=== PATIENT | male | born 1950 | race Caucasian/White ===

== ENCOUNTER → 2017-01-31 | Outpatient (CLI) | payer BC ==
[~2017-01-31] MED LIST: AMLO-114 PO; ASCA500 PO; CARV25TA PO; CBCI IV; CLC100 PO; CLON0.3D4 TD; FRRS300 PO; LXP/10 PO; MCRK20 PO; MULT-506 PO; OXYC-57 PO; OXYSR10 PO; SIMV40TA2 PO; SNK PO; XRL10 PO
[2017-01-31 17:47] LABS: HEMATOCRIT 48.5 % (42-52); MEAN CELL VOLUME 92.9 fL (80-100); MEAN CORPUSCULAR HEMOGLOBIN 32.4 pg (25-34); MEAN CORPUSCULAR HGB CONC 34.8 g/dl (32-36); MEAN PLATELET VOLUME 10.7 fL (7.4-10.4); PLATELET COUNT 191 K/uL (130-400); RED BLOOD COUNT 5.22 M/uL (4.7-6.1); WHITE BLOOD COUNT 7.07 K/uL (4.8-10.8)
[2017-01-31 17:49] LABS: URINE APPEARANCE CLEAR (CLEAR); URINE BILIRUBIN NEG (NEG); URINE COLOR YELLOW; URINE NITRITE NEG (NEG); URINE SPECIFIC GRAVITY 1.022 (1.000-1.030); UROBILINOGEN NEG (NEG)
[2017-01-31 17:56] LABS: MANUAL MICROSCOPIC REQUIRED? NO; REVIEW REQ? NO
[2017-01-31 18:01] LABS: BLOOD UREA NITROGEN 20 mg/dl (7-18); BUN/CREATININE RATIO 18.2 (10-20); CALCIUM 9.5 mg/dl (8.5-10.1); CARBON DIOXIDE 22 mmol/L (21-32); CHLORIDE 110 mmol/L (98-107); GLUCOSE 92 mg/dl (70-99); POTASSIUM 3.3 mmol/L (3.5-5.1); SODIUM 143 mmol/L (136-145)
[2017-01-31 18:06] LABS: FERRITIN 37.5 ng/ml (8.0-388.0); PHOSPHORUS 3.1 mg/dl (2.5-4.9); TOTAL IRON BINDING CAPACITY 364 mcg/dl (250-450)
[2017-01-31 18:22] LABS: URINE PROTIEN/CREAT RATIO 0.2 (0-0.2); URINE TOTAL PROTEIN 20.4 mg/dl (0-11.9)
--- NOTE | 2017-02-05 11:38 | CODING QUERY MEDICAL NECESSITY ---
SUPPORTING DIAGNOSIS NEEDED A supporting diagnosis is required for the test/procedure performed on this patient in order for us to be reimbursed by the patient's insurance. Please provide a supporting diagnosis for the following test/procedure listed below next to the test name along with your signature. *If there is no additional diagnosis for this patient that would support the following test/procedure please document that below next to the test/procedure. Test(s)/Procedure(s) that require a supporting diagnosis: * VITAMIN D, 25-HYDROXY DIAGNOSIS: Provider Signature: Date: Thank you Lisa Man [employer] Once completed, please kindly fax back to [phone] For questions please call [phone]
== END | disposition home or self-care (01) ==
LOC: C.LABPBG 14:53
PROVIDERS: ATTEND Internal Medicine Nephrology
DX: I10 Essential (primary) hypertension (principal); R31.29 Other microscopic hematuria; D64.9 Anemia, unspecified; E55.9 Vitamin D deficiency, unspecified

== ENCOUNTER → 2017-08-08 | Outpatient (CLI) | payer BC ==
[2017-08-08 12:02] LABS: HEMATOCRIT 48.8 % (42-52); HEMOGLOBIN 17.5 g/dL (14.0-18.0); MEAN CELL VOLUME 93.3 fL (80-100); MEAN CORPUSCULAR HEMOGLOBIN 33.5 pg (25-34); MEAN CORPUSCULAR HGB CONC 35.9 g/dl (32-36); MEAN PLATELET VOLUME 11.3 fL (7.4-10.4); PLATELET COUNT 163 K/uL (130-400); RED CELL DISTRIBUTION WIDTH CV 12.8 % (11.5-14.5); RED CELL DISTRIBUTION WIDTH SD 43.5 fL (36.4-46.3); WHITE BLOOD COUNT 6.83 K/uL (4.8-10.8)
[2017-08-08 12:37] LABS: ALBUMIN 4.2 gm/dl (3.4-5.0); ALKALINE PHOSPHATASE 87 U/L (45-117); ALT/SGPT 52 U/L (12-78); AST/SGOT 27 U/L (15-37); BLOOD UREA NITROGEN 21 mg/dl (7-18); CALCIUM 9.1 mg/dl (8.5-10.1); CARBON DIOXIDE 27 mmol/L (21-32); CREATININE 1.06 mg/dl (0.60-1.40); GLUCOSE 98 mg/dl (70-99); POTASSIUM 3.6 mmol/L (3.5-5.1); SODIUM 140 mmol/L (136-145)
[2017-08-08 12:38] LABS: CHOLESTEROL 172 mg/dl (0-200); LDL CHOLESTEROL CALCULATED 85 mg/dl; TOTAL PROTEIN 7.2 gm/dl (6.4-8.2)
== END | disposition home or self-care (01) ==
LOC: C.LABPBG 09:30
PROVIDERS: ATTEND Internal Medicine Nephrology
DX: Z12.5 Encounter for screening for malignant neoplasm of prostate (principal); I10 Essential (primary) hypertension; A49.01 Methicillin susceptible Staphylococcus aureus infection, unspecified site; R31.29 Other microscopic hematuria

== ENCOUNTER 2018-03-08 18:14 | Emergency (ER) | payer BC ==
[~2018-03-08] VITALS: Ht 182.9 cm; Wt 120.6 kg
[~2018-03-08 18:14] MED LIST changes: -AMLO-114 PO; +AMLO10TA3 PO
[2018-03-08 18:18] VITALS: TEMP 36.6; Ht 182.9 cm; Wt 120.6 kg
[2018-03-08 19:31] LABS: BASO % 0.6 %; BASO ABS # 0.04 K/uL (0-0.2); EOS % 5.2 %; EOS ABS # 0.36 K/uL (0-0.5); HEMATOCRIT 49.8 % (42-52); HEMOGLOBIN 18.3 g/dL (14.0-18.0); IG# 0.02 K/uL (0.00-0.02); LYMPH % 24.7 %; MEAN CELL VOLUME 92.9 fL (80-100); MEAN CORPUSCULAR HEMOGLOBIN 34.1 pg (25-34); MEAN CORPUSCULAR HGB CONC 36.7 g/dl (32-36); MEAN PLATELET VOLUME 10.7 fL (7.4-10.4); MONO % 9.9 %; MONO ABS # 0.68 K/uL (0.11-0.59); NEUT % 59.3 %; NEUT ABS # 4.09 K/uL (1.4-6.5); PLATELET COUNT 150 K/uL (130-400); RED CELL DISTRIBUTION WIDTH CV 12.9 % (11.5-14.5); RED CELL DISTRIBUTION WIDTH SD 43.8 fL (36.4-46.3); WHITE BLOOD COUNT 6.89 K/uL (4.8-10.8)
[2018-03-08 19:54] LABS: CALCIUM 9.3 mg/dl (8.5-10.1); CREATININE 1.03 mg/dl (0.60-1.40); POTASSIUM 2.8 mmol/L (3.5-5.1)
[2018-03-08] MEDS ORDERED: SODIUM CHLORIDE 0.9% 1000ML 1,000 ML IV STA (21:14)
[2018-03-08] MEDS ORDERED: GADAVIST IV PRN (21:30)
--- NOTE | 2018-03-08 21:36 | DIAGNOSTIC IMAGING REPORT ---
MRI OF THE LUMBAR SPINE WITH AND WITHOUT CONTRAST CLINICAL HISTORY: Low back and right leg pain. Previous lumbar spine surgery. Possible infection. COMPARISON STUDY: Lumbar spine fluoroscopic images April 24, 2014. TECHNIQUE: Utilizing a 1.5 Joie magnet and dedicated coil, multiplanar, multiecho imaging of the lumbar spine was performed before and after uneventful IV administration of 12 mL of Gadavist. FINDINGS: For purposes of numbering on this exam, the L5-S1 disc space is assigned to axial image 23 of 25. There are postoperative findings consistent with L4-L5 and L5-S1 discectomies with interbody spacer placement. Posterior decompression is noted with bilateral pedicle screws at the L4, L5 and S1 levels. The conus terminates at the L1-L2 level. T2 hyperintense bilateral renal lesions are suboptimally assessed on this exam but favor cysts. Paravertebral soft tissues are unremarkable. Multiple Schmorl's nodes are noted. There is no acute lumbar spine fracture. Note is made of moderate increased T2 signal within the L4-L5 disc space. There is mild increased T2 signal within the L5-S1 disc space. However, there is no paravertebral edema. There is no epidural fluid collection. L1-2: The central canal and neural foramen are patent. L2-3: The central canal and neural foramen are patent. L3-4: There is disc space narrowing with disc bulge, ligamentous hypertrophy and facet arthrosis. This results in moderate narrowing of the central canal and lateral recesses. In addition, there is a 1.1 x 0.8 cm right paracentral abnormality located inferior to the disc space which likely reflects a disc extrusion with inferior subligamentous migration. This results in moderate narrowing of the right lateral recess. There is mild narrowing of both neural foramen. L4-5: Disc space narrowing is noted. There is slight anterolisthesis. No residual central canal stenosis is noted. There is mild right neural foraminal narrowing. L5-S1: Central canal and left neural foramen are patent. There is mild narrowing of the right neural foramen. IMPRESSION: 1. Status post L4-L5 and L5-S1 discectomies and L4-S1 posterior decompression with bilateral pedicle screw fusion. 2. Increased T2 signal within the L4-L5 and L5-S1 disc spaces without paravertebral edema or endplate destruction. This finding is likely degenerative. Early discitis could appear similar although is considered much less likely. If persistent symptoms, short-term follow-up MRI is recommended to exclude this possibility. 3. Moderate central canal stenosis at L3-L4. Disc bulge with superimposed right paracentral disc extrusion with inferior subligamentous migration which results in moderate narrowing of the right lateral recess. This could be correlated with a right L4 radiculopathy. Electronically signed by: Tavo Calabrese M.D. 03/08/2018 9:34 PM Dictated Date/Time: 03/08/2018 9:23 PM
[2018-03-08] MEDS ORDERED: POTASSIUM CHLORIDE 10 MEQ TABCR PO STA (22:13)
[2018-03-08] MEDS ORDERED: OXYCODONE IR HOME PACK PO STA (22:43)
[2018-03-08] MEDS ORDERED: OXYC-90 PO (22:46)
--- NOTE | 2018-03-08 22:48 | EMERGENCY ROOM VISIT NOTE ---
History First contact with patient: 18:42 Chief Complaint: BACK PAIN Stated Complaint: BACK AND LEG PAIN History of Present Illness The patient is a 67 year old male who presents to the Emergency Room via private vehicle with complaints of "back and leg pain". The patient notes a history of 2 back surgeries in the past which were performed by Dr. Bear. He notes most of his pathology is in the L-spine. The patient states that about 3- 4 weeks ago he was lifting heavy objects and then shortly thereafter began with low back pain that radiated down his right leg. He states that instead of the being down the posterior aspect of his leg like his previous sciatica diagnosis , he notes that this pain is on the anterior proximal thigh. He rates the pain as an 8/10. He has been taking copious amounts of ibuprofen without relief. He notes he has been told by numerous people that this is not safe for healthy. He states that he is also taking doxycycline chronically for previous infection. He notes that he had x-rays performed on March 06 and notes that they revealed L4-S1 postoperative change with possible pedicle screw loosening/ and/or infection". He notes that he was then referred here by Dr. Bear's office after calling them. No fevers, chills, recent illness. No lower extremity weakness, bowel or bladder incontinence, numbness or tingling the genital region. Review of Systems A complete 10-point Review of Systems was discussed with the patient, with pertinent positives and negatives listed in the History of Present Illness. All remaining Review of Systems questions can be considered negative unless otherwise specified. Past Medical/Surgical History Medical Problems: (1) Acute kidney injury (2) Anemia (3) Coronary Atherosclerosis Of [place] Coronary Vessel (4) Degenerative joint disease (DJD) of hip (5) Depression (6) DJD (degenerative joint disease) (7) Hypertension (8) Hypertension Nos (9) Lumbar stenosis with neurogenic claudication (10) MSSA (methicillin susceptible Staphylococcus aureus) infection (11) Pure Hypercholesterolem Surgical Problems: (1) History of total left hip replacement (2) Hx of hernia repair (3) Hx of lumbosacral spine surgery (4) Hx of shoulder surgery (5) Percutaneous Translum Coron Angioplasty Status Social History Smoking Status: Never Smoker Drug Use: none Marital Status: Housing Status: lives with family Occupation Status: employed Current/Historical Medications Scheduled Amlodipine (Norvasc), 10 MG PO DAILY Ascorbic Acid (Vitamin C), 500 MG PO QAM Carvedilol (Coreg), 25 MG PO BID Clonidine Hcl (Jwuhasat-Fid-6), 1 PATCH TD WK Daptomycin (Cubicin), 725 MG IV DAILY Docusate Sodium (Docusate Sodium), 100 MG PO BID Escitalopram Oxalate (Lexapro), PO DAILY Ferrous Sulfate (Ferrous Sulfate), 325 MG PO BIDM Multivitamin (Multivitamin), 1 TAB PO DAILY Oxycodone HCl (Oxycontin), 10 MG PO Q12 Potassium Chloride (Klor-Con M20), 40 MEQ PO DAILY Rivaroxaban (Xarelto), 10 MG PO DAILY Senna (Senna Lax), 8.6 MG PO QAM Simvastatin (Zocor), 40 MG PO QPM Scheduled PRN Oxycodone Ir (Roxicodone Ir), 1 TAB PO Q4H PRN for Pain Oxycodone/Acetaminophen 5MG/325MG (Percocet 5MG/325MG), 1-2 TABLETS PO Q4H PRN for Pain Physical Exam Vital Signs Date Time Temp Pulse Resp B/P (MAP) Pulse Ox O2 Delivery O2 Flow Rate FiO2 03/08/18 23:13 102 18 126/90 93 18 18:18 36.6 78 18 157/96 95 Room Air Physical Exam VITAL SIGNS - Vital signs and nursing notes were reviewed. Stable. GENERAL -67-year-old male appearing his stated age who is in no acute distress. Communicates well with provider and answers questions appropriately. SKIN - Without rashes. No meningeal or petechial rash. HEAD - NC/AT. EYES - PERRL with EOMI bilaterally. Sclera anicteric. EARS - No deformities of external structures noted on gross examination bilaterally. NOSE - Midline and without cyanosis. No epistaxis or purulent drainage noted. MOUTH/OROPHARYNX - Without perioral cyanosis. NECK - Neck with FROM. Supple to palpation. No lymphadenopathy noted. No nuchal rigidity. LUNGS - Chest wall symmetric without accessory muscle use, intercostals retractions, or central cyanosis. Normal vesicular breath sounds CTA B/L. No wheezes, rales, or rhonchi appreciated. CARDIAC - RRR with S1/S2. No murmur, rubs, or gallops appreciated. ABDOMEN - Abdominal contour normal without pulsations or visible masses. BS normoactive all four quadrants. No tenderness, palpable masses, hepatosplenomegaly, or ascites noted. MUSCULOSKELETAL: The patient is able to sit upright without difficulty. He notes pain with any movement at the L-spine region. He is tender in the L- spine to palpation as well as favoring the right paraspinous musculature. EXTREMITIES - No clubbing or peripheral cyanosis. No pretibial edema present. No deficits in the lower extremities. He is neurovascularly intact. +5/5 strength noted in UE/LE bilaterally. NEUROLOGIC - Cranial nerves II through XII grossly intact. Sensory intact to light touch throughout. PSYCH - A&O, and cooperates fully with examiner. Pt is very pleasant and interacts well with examiner. Medical Decision & Procedures ER Provider Diagnostic Interpretation: [~ rep ct add3]] MRI OF THE LUMBAR SPINE WITH AND WITHOUT CONTRAST CLINICAL HISTORY: Low back and right leg pain. Previous lumbar spine surgery. Possible infection. COMPARISON STUDY: Lumbar spine fluoroscopic images April 24, 2014. TECHNIQUE: Utilizing a 1.5 Joie magnet and dedicated coil, multiplanar, multiecho imaging of the lumbar spine was performed before and after uneventful IV administration of 12 mL of Gadavist. FINDINGS: For purposes of numbering on this exam, the L5-S1 disc space is assigned to axial image 23 of 25. There are postoperative findings consistent with L4-L5 and L5-S1 discectomies with interbody spacer placement. Posterior decompression is noted with bilateral pedicle screws at the L4, L5 and S1 levels. The conus terminates at the L1-L2 level. T2 hyperintense bilateral renal lesions are suboptimally assessed on this exam but favor cysts. Paravertebral soft tissues are unremarkable. Multiple Schmorl's nodes are noted. There is no acute lumbar spine fracture. Note is made of moderate increased T2 signal within the L4-L5 disc space. There is mild increased T2 signal within the L5-S1 disc space. However, there is no paravertebral edema. There is no epidural fluid collection. L1-2: The central canal and neural foramen are patent. L2-3: The central canal and neural foramen are patent. L3-4: There is disc space narrowing with disc bulge, ligamentous hypertrophy and facet arthrosis. This results in moderate narrowing of the central canal and lateral recesses. In addition, there is a 1.1 x 0.8 cm right paracentral abnormality located inferior to the disc space which likely reflects a disc extrusion with inferior subligamentous migration. This results in moderate narrowing of the right lateral recess. There is mild narrowing of both neural foramen. L4-5: Disc space narrowing is noted. There is slight anterolisthesis. No residual central canal stenosis is noted. There is mild right neural foraminal narrowing. L5-S1: Central canal and left neural foramen are patent. There is mild narrowing of the right neural foramen. IMPRESSION: 1. Status post L4-L5 and L5-S1 discectomies and L4-S1 posterior decompression with bilateral pedicle screw fusion. 2. Increased T2 signal within the L4-L5 and L5-S1 disc spaces without paravertebral edema or endplate destruction. This finding is likely degenerative. Early discitis could appear similar although is considered much less likely. If persistent symptoms, short-term follow-up MRI is recommended to exclude this possibility. 3. Moderate central canal stenosis at L3-L4. Disc bulge with superimposed right paracentral disc extrusion with inferior subligamentous migration which results in moderate narrowing of the right lateral recess. This could be correlated with a right L4 radiculopathy. Electronically signed by: Tavo Calabrese M.D. 03/08/2018 9:34 PM Dictated Date/Time: 03/08/2018 9:23 PM Laboratory Results 03/08/18 19:20 Red Blood Count 5.36, Mean Corpuscular Volume 92.9, Mean Corpuscular Hemoglobin 34.1, Mean Corpuscular Hemoglobin Concent 36.7, Mean Platelet Volume 10.7, Neutrophils (%) (Auto) 59.3, Lymphocytes (%) (Auto) 24.7, Monocytes (%) (Auto) 9.9, Eosinophils (%) (Auto) 5.2, Basophils (%) (Auto) 0.6, Neutrophils # (Auto) 4.09, Lymphocytes # (Auto) 1.70, Monocytes # (Auto) 0.68, Eosinophils # (Auto) 0.36, Basophils # (Auto) 0.04 03/08/18 19:20 Test 03/08/18 19:20 White Blood Count 6.89 K/uL (4.8-10.8) Red Blood Count 5.36 M/uL (4.7-6.1) Hemoglobin 18.3 g/dL (14.0-18.0) Hematocrit 49.8 % (42-52) Mean Corpuscular Volume 92.9 fL (80-100) Mean Corpuscular Hemoglobin 34.1 pg (25-34) Mean Corpuscular Hemoglobin Concent 36.7 g/dl (32-36) Platelet Count 150 K/uL (130-400) Mean Platelet Volume 10.7 fL (7.4-10.4) Neutrophils (%) (Auto) 59.3 % Lymphocytes (%) (Auto) 24.7 % Monocytes (%) (Auto) 9.9 % Eosinophils (%) (Auto) 5.2 % Basophils (%) (Auto) 0.6 % Neutrophils # (Auto) 4.09 K/uL (1.4-6.5) Lymphocytes # (Auto) 1.70 K/uL (1.2-3.4) Monocytes # (Auto) 0.68 K/uL (0.11-0.59) Eosinophils # (Auto) 0.36 K/uL (0-0.5) Basophils # (Auto) 0.04 K/uL (0-0.2) RDW Standard Deviation 43.8 fL (36.4-46.3) RDW Coefficient of Variation 12.9 % (11.5-14.5) Immature Granulocyte % (Auto) 0.3 % Immature Granulocyte # (Auto) 0.02 K/uL (0.00-0.02) Anion Gap 10.0 mmol/L (3-11) Est Creatinine Clear Calc Drug Dose 95.9 ml/min Estimated GFR () 87.9 Estimated GFR (Non- 75.9 BUN/Creatinine Ratio 30.1 (10-20) Calcium Level 9.3 mg/dl (8.5-10.1) Medications Administered Medications (Trade) Dose Ordered Sig/Lizz Route Start Time Stop Time Status Last Admin Dose Admin Sodium Chloride 1,000 ml @ 999 mls/hr Q1H1M STAT IV 03/08/18 21:14 03/08/18 22:14 DC 03/08/18 21:14 999 MLS/HR Potassium Chloride (Klor-Con M10) 40 meq NOW STAT PO 03/08/18 22:13 03/08/18 22:14 DC 03/08/18 22:13 40 MEQ Medical Decision Patient was seen and evaluated as above in room D7. Review was performed of nursing notes and vital signs. After obtaining a thorough history and physical examination the above work up was performed. He has an extensive past medical history, as well as well-documented lumbar pathology. He had 2 surgeries years ago of the L-spine. He notes he was referred here for evaluation. I did review his x-rays. This in conjunction with his presentation and past medical history prompted an MRI of the L-spine which I believe is warranted. I was able to also obtain baseline labs. No concerning leukocytosis. No significant anemia. He is hypokalemic. He notes that he takes chronic medications for this. I did provide him 40 mEq potassium chloride p.o. I did obtain an EKG given the potassium lower than 3. There is no flattened P waves, widened QRS or PTs. At this time in the absence of any EKG changes do not suspect he requires inpatient management. No chest pain or shortness of breath. I discussed inpatient versus outpatient management. I did discuss the case with Giancarlo Sarmiento PA-C who was on-call for Dr. Bear for spine. The skull took place around 10 PM. He recommended having the patient call his office Sunday morning to be seen in the next 1-2 weeks. He notes that he does not believe there is any infection and no discitis. It is important that the patient is neurovascularly intact. He will be given a short prescription of oxycodone for pain. Thorough discussion of benefit versus risk discussed with the patient. This included but was not limited to risk of addiction. No red flags in the [place] drug monitoring system. The patient was educated upon management, educated upon todays findings/results, educated upon symptoms in which to return , had questions answered prior to discharge, and was discharged home in good condition. I will note that the patient's radiculopathy correlates very well with his MRI. The L4 right-sided radiculopathy fits with the patient's noted radiation of pain from the right low back region around to the right anterior thigh. There is no bowel or bladder incontinence, numbness or tingling the genital region or leg weakness. Case was discussed with the attending physician. In the evaluation and treatment of this patient the following differential diagnoses were entertained: Fracture, dislocation, subluxation, herniation, cauda equina syndrome, infection, among others. Impression Primary Impression: Low back pain Additional Impression: Hypokalemia Departure Information Dispostion Home / Self-Care Condition GOOD Prescriptions Oxycodone Ir (Roxicodone Ir) 5 Mg Tab 1 TAB PO Q4H Y for Pain, #18 TAB For Initial Treatment Prov: Lul Arceo PA-C 03/08/18 Referrals Shorty Cortes M.D. (PCP) Gregorio Bear D.O. Patient Instructions My [facility] Additional Instructions You have been treated in the Emergency Department for Back Pain. You have been prescribed Oxy IR to be used for pain control. This is a narcotic medication. You cannot drive or consume alcohol while on this medicine. This medicine should only be used for pain that cannot be controlled with over-the- counter pain medicines. For pain control, you can use the following [id number]-[id number] medicines (if >12 yo): - Regular strength (325mg/tab) Tylenol (acetaminophen) 2 tabs every 4-6 hours as needed. Do not exceed 12 tablets in a 24 hour period. Avoid taking more than 3 grams (3000 mg) of Tylenol per day. This includes any other sources of acetaminophen you may take on a regular basis. - Regular strength (200 mg/tab) Advil (ibuprofen) 1-2 tabs every 4-6 hours as needed. Do not exceed a dose of 3200 mg per day. MAX would be 400mg every 4 hours, OR 600mg every 6 hours OR 800mg every 8 hours. This is the maximum. If this is an acute injury, ice can be applied to the area of pain for the first 3 days to help decrease pain and inflammation. After the first 3 days, a heating pad can be used over the area for continued soothing relief. You should schedule a follow-up appointment in 2-3 days with your Primary Care Provider for further evaluation and treatment of your back pain and low potassium Please call Dr. Bear's office first thing Sunday to request follow-up indicating that you were seen here in the emergency department and we spoke with Giancarlo. Return to the Emergency Department if your current symptoms worsen despite treatment course outlined above, or if you develop any of the following symptoms : intractable pain despite aforementioned treatment course, loss of control of your bowel or bladder, numbness or tingling in your groin, or development of a fever. Problem Qualifiers
[2018-03-08 23:13] VITALS: BP 126/90; PULSE 102; O2SAT 93
== END 2018-03-08 23:15 | disposition home or self-care (01) ==
LOC: C.EDB 18:14 → C.EDD 23:15
DX: M54.5 Low back pain (principal); E87.6 Hypokalemia; I10 Essential (primary) hypertension; F32.9 Major depressive disorder, single episode, unspecified; D64.9 Anemia, unspecified; Z79.01 Long term (current) use of anticoagulants; Z87.39 Personal history of other diseases of the musculoskeletal system and connective tissue; Z96.642 Presence of left artificial hip joint; Z98.890 Other specified postprocedural states

== ENCOUNTER 2020-01-14 16:17 | Inpatient (IN) ==
--- NOTE | 2020-01-09 14:07 | Anesthesiology Consultation ---
Date of Service January 09, 2020 Assessment & Plan (1) Encounter for pre-operative examination: Chart Review Chart Review: Acceptable Risk for Surgery (pending 01/07 Covid testing) and Patient NOT seen in Pre Admission Testing Per nursing assessment 01/09/20, pt resides in [place]. No recent travel- uses mask in public. Had Covid test 01/07- results pending Seen by nephro 06/03/19= CKD stable. Hematuria- UA negative for blood at visit. HTN - well controlled. Has mild diuretic induced hypokalemia. Advised to increase K in diet- continue with K supplement. Anemia- acceptable. PTH WNL. F/u six months I&D seroma 05/01/18= Done under [facility] with Grade 2 view with Glidescope #3 and ETT 8.0 History Surgery Operation Date: 01/13/20 12:35 Proposed Procedures p L2-L3 Decompression and Fusion, L3-L4 Hardware Removal, Spinal Cord Monitoring - Gregorio Bear, DO Height/Weight Height: 6 ft 1 in Weight: 124.738 kg Allergies Allergy/AdvReac Type Severity Reaction Status Date / Time ciprofloxacin AdvReac Mild headache Verified 01/09/20 11:11 Cipro AdvReac Unknown headache Verified 12/29/15 07:05 Medications Home Medications Medication Instructions Recorded Confirmed Last Taken amlodipine [Norvasc] 10 mg PO QAM 03/29/18 01/09/20 04/06/18 carvedilol [Coreg] 25 mg PO BID 03/29/18 01/09/20 04/06/18 doxycycline hyclate 100 mg PO BID 03/29/18 01/09/20 04/06/18 hydrochlorothiazide 25 mg PO QAM 03/29/18 01/09/20 04/05/18 ibuprofen 800 - 1,000 mg PO QID PRN 03/29/18 01/09/20 04/06/18 losartan 50 mg PO QPM 03/29/18 01/09/20 04/05/18 21:00 potassium chloride 10 meq PO BID 03/29/18 01/09/20 04/06/18 simvastatin [Zocor] 40 mg PO HS 03/29/18 01/09/20 04/05/18 21:00 gabapentin 300 mg capsule 300 mg PO TID cap 04/15/19 01/09/20 Unknown docusate sodium [Colace] 100 mg PO BID 01/09/20 01/09/20 Unknown multivitamin 1 tab PO QAM 01/09/20 01/09/20 Unknown oxycodone [OxyContin] 10 mg PO Q6H PRN 01/09/20 01/09/20 Unknown Past Medical History Medical History (Updated 01/09/20 @ 14:07 by Anuja Harding PA-C) Anxiety CAD (coronary artery disease) s/p 1 stent in 2004 Chronic kidney disease, stage II (mild) Follows with nephro- stable. Degenerative disc disease Hypertension Numbness and tingling BELOW RIGHT KNEE Osteoarthritis Spinal stenosis at L4-L5 level Past Surgical History Surgical History Fusion of spine LUMBAR X 3 History of anesthesia reaction WOKE UP DISORIENTED,"ACTED CRAZY" History of cardiac cath - [place]. S/S "MIMICKING HEART ATTACK" X3 - WAS FLOWN TO [place] HAD 3 CATHS DONE. SENT TO [facility]OLD WAS HAVING PANIC ATTACKS. PUT ON XANAX TOTAL [address] [place] History of colonoscopy History of endoscopic sinus surgery X2 History of heart artery stent X 1-2005. [facility]. In the [place] History of herniorrhaphy LEFT AND RIGHT Inguinal hernias History of tonsillectomy History of total hip arthroplasty LEFTX2, RIGHT X3 History of total shoulder replacement LEFT Social History Smoking Status: Never smoker Do You Dip or Chew Tobacco: No Hx Alcohol Use: Yes Alcohol type: beer and hard liquor alcohol intake frequency: 3 or more drinks per day Hx Substance Use: No substance use type: painkillers and prescription drug Substance Use Type Other:: Takes as prescribed Testing Laboratory Results Laboratory Tests 01/08/20 01/08/20 01/08/20 15:56 15:56 15:56 WBC 8.20 Hgb 17.8 Hct 50.3 Plt Count 165 PT 10.7 INR 1.0 Sodium 143 Potassium 3.2 L Chloride 111 H Carbon Dioxide 22 BUN 25 H Creatinine 1.26 Glucose 117 H Urine culture 01/08/20= Negative Electrocardiogram Date: 01/08/20 SR with 1st degree AVB at 75 bpm. LAD. Chest X-Ray Date: 01/08/20 Findings: + NAD Echocardiogram Date: 04/09/18 EF: 65-70% LV Function: normal RWMA: + none Other Findings: + LVH (mild/concentric) Valvular Disease: + no significant valvular disease Grade I diastolic dysfunction. RV moderately dilated. Mild to moderate RV hypertrophy. RV systolic function mild to moderately reduced.
--- NOTE | 2020-01-14 15:41 | History & Physical Report ---
Date of Service January 14, 2020 Assessment & Plan (1) Neurogenic claudication due to lumbar spinal stenosis: At this time the patient is declining significantly with the neuro deficits and severe pain. Subsequently recommending urgent decompression and fusion. He has an MRI performed a week ago on 618 that demonstrates significant to space collapse and retrolisthesis L2-L3 with a massive disc herniation and caudal migration. This is creating severe central and right-sided neuroforaminal stenosis. At this time he will be admitted to have evaluated by anesthesiology and cardiology and perform surgery as soon as he is cleared. He will require a lumbar decompression and fusion L2-3 with removal of instrumentation L3-4. Present on Admission?: Yes History of Present Illness Chief Complaint: Severe back and bilateral leg pain right greater than left. Primary Care Provider: Shorty Cortes This is a 69-year-old male known to us that presents with marked decline in status over the past several weeks. He did note significant right lower extremity pain with some leg pain in the left. It markedly limits his ability to stand and ambulate. He is undergone various medications including trial of oral steroids without marked improvement. Allergies Allergy/AdvReac Type Severity Reaction Status Date / Time ciprofloxacin AdvReac Mild headache Verified 01/09/20 11:11 Cipro AdvReac Unknown headache Verified 12/29/15 07:05 Home Medications Home Medications Medication Instructions Recorded Confirmed Type amlodipine [Norvasc] 10 mg PO QAM 03/29/18 01/09/20 History carvedilol [Coreg] 25 mg PO BID 03/29/18 01/09/20 History doxycycline hyclate 100 mg PO BID 03/29/18 01/09/20 History hydrochlorothiazide 25 mg PO QAM 03/29/18 01/09/20 History ibuprofen 800 - 1,000 mg PO QID PRN 03/29/18 01/09/20 History losartan 50 mg PO QPM 03/29/18 01/09/20 History potassium chloride 10 meq PO BID 03/29/18 01/09/20 History simvastatin [Zocor] 40 mg PO HS 03/29/18 01/09/20 History gabapentin 300 mg capsule 300 mg PO TID cap 04/15/19 01/09/20 History docusate sodium [Colace] 100 mg PO BID 01/09/20 01/09/20 History multivitamin 1 tab PO QAM 01/09/20 01/09/20 History oxycodone [OxyContin] 10 mg PO Q6H PRN 01/09/20 01/09/20 History Past Med/Surg History Medical History (Updated 01/14/20 @ 15:40 by Gregorio Bear, DO) Anxiety CAD (coronary artery disease) s/p 1 stent in 2004 Chronic kidney disease, stage II (mild) Follows with nephro- stable. Degenerative disc disease Hypertension Numbness and tingling BELOW RIGHT KNEE Osteoarthritis Spinal stenosis at L4-L5 level Surgical History Fusion of spine LUMBAR X 3 History of anesthesia reaction WOKE UP DISORIENTED,"ACTED CRAZY" History of cardiac cath - [facility]. S/S "MIMICKING HEART ATTACK" X3 - WAS FLOWN TO [facility] D 3 CATHS DONE. SENT TO [place] TOLD WAS HAVING PANIC ATTACKS. PUT ON XANAX TOTAL [address] [place] History of colonoscopy History of endoscopic sinus surgery X2 History of heart artery stent X 1-2004. [facility]. In the [place] History of herniorrhaphy LEFT AND RIGHT Inguinal hernias History of tonsillectomy History of total hip arthroplasty LEFTX2, RIGHT X3 History of total shoulder replacement LEFT Social History Preferred Language: Libyan Communication Ability: Effective Visual Impairment: Limited Stock Counter Required: No Beliefs That Will Affect Care: None marital status: Current Living Situation: Spouse and Family Current Living Situation Comment: [place]/2 KIDS Other Information That Helps Us Care for You: No Feels Safe at Home: Yes Safety Concerns: Feels Safe At This Time Smoking Status: Never smoker Do You Dip or Chew Tobacco: No ; Second Hand Exposure: No ; Hx Alcohol Use: Yes Alcohol type: beer and hard liquor Hx Substance Use: No Physical Exam Physical Exam: On exam he is in obvious distress. Ambulates with antalgic gait. Demonstrates quads deficits to the testing the right lower extremity. He carmen forward with standing. Code Status & VTE Plan VTE Prophylaxis Plan VTE Prophylaxis will be ordered: Yes
[~2020-01-14 16:17] MED LIST changes: +ACETAMINOPHEN 500 MG TAB PO SCH; -AMLO10TA3 PO; -ASCA500 PO; -CARV25TA PO; -CBCI IV; +CEFAZOLIN 3000MG 72.5 ML IV SCH; -CLC100 PO; -CLON0.3D4 TD; +CeleBREX 200 MG CAP PO SCH; -FRRS300 PO; +GABAPENTIN 300 MG CAP PO SCH; +HYDROmorphone INJ 0.5 MG/0.5 ML SYR IV PRN; +HYDROmorphone INJ 1 MG/ML SYRINGE IV PRN; +LORazepam 1 MG TAB PO PRN; +LORazepam 1 MG/2 ML VIAL IV PRN; +LR 15ML/HR IV SCH; -LXP/10 PO; -MCRK20 PO; +METOCLOPRAMIDE HCL INJ 5 MG/ML 2 ML VIAL IV PRN; -MULT-506 PO; +ONDANSETRON 4 MG OD TAB PO PRN; +ONDANSETRON INJ 2 MG/ML 2 ML VIAL IV PRN; -OXYC-57 PO; -OXYSR10 PO; +PROMETHAZINE HCL 12.5 MG in SODIUM CHLORIDE 0.9% 50 ML IV PRN; -SIMV40TA2 PO; -SNK PO; +TRAMADOL HCL 50 MG TABLET PO PRN; -XRL10 PO
[2020-01-14 17:26] LABS: Basophils # (auto) 0.04 K/uL (0-0.2); Basophils % (auto) 0.5 %; Eosinophils # (auto) 0.48 K/uL (0-0.5); Eosinophils % (auto) 5.8 %; Hemoglobin 17.8 g/dL (14.0-18.0); Immature Granulocytes # (auto) 0.03 K/uL (0.00-0.02); Immature Granulocytes % (auto) 0.4 %; Lymphocytes # (auto) 2.01 K/uL (1.2-3.4); Lymphocytes % (auto) 24.4 %; Mean Corpuscular Hgb Conc 35.6 g/dL (32-36); Mean Corpuscular Volume 95.6 fL (80-100); Mean Platelet Volume 10.6 fL (7.4-10.4); Monocytes % (auto) 9.7 %; Neutrophils # (auto) 4.87 K/uL (1.4-6.5); Neutrophils % (auto) 59.2 %; Platelet Count 147 K/uL (130-400); RDW Coefficient of Variation 13.2 % (11.5-14.5); RDW Standard Deviation 45.8 fL (36.4-46.3); Red Blood Count 5.23 M/uL (4.7-6.1); White Blood Count 8.23 K/uL (4.8-10.8)
[2020-01-14 17:45] LABS: Albumin Level 3.9 gm/dl (3.4-5.0); BUN Creatinine Ratio 20.7 (10-20); Calcium 9.3 mg/dl (8.5-10.1); Creatinine Clr Calc Pharmacy 90.2 ml/min; Est GFR (African American) 80.1; Est GFR (Non-African American) 69.1; Potassium 3.1 mmol/L (3.5-5.1)
[2020-01-14 17:48] LABS: Albumin Globulin Ratio 1.1 (0.9-2); Bilirubin,Total 0.7 mg/dl (0.2-1); Globulin 3.7 gm/dl (2.5-4.0); Total Protein 7.6 gm/dl (6.4-8.2)
--- NOTE | 2020-01-14 17:50 | Consultation ---
Date of Consultation January 14, 2020 Assessment & Plan (1) Neurogenic claudication due to lumbar spinal stenosis: Pt for planned L2-L3 decompression and fusion and L3-L4 hardware removal by Dr Bear for back pain with radiculopathy. 01/08/2020 pre-op labs reviewed. Negative Covid-19 testing, CXR: no acute disease, EKG: sinus rhythm with 1st degree AV block and left axis deviation. Pt prior EKG from 2018 with 1st degree AV block. -pain management per ortho -DVT prophylaxis per ortho, SCDs -Pre-op Hgb: 17.8 -Will make NPO tonight in case of procedure tomorrow (2) Hypertension: -Continue carvedilol, losartan -Will hold HCTZ in case of procedure tomorrow (3) Hypokalemia: K: 3.1. -Replace with oral KCl tonight -Continue home potassium supplement (4) HLD (hyperlipidemia): -continue statin (5) CAD (coronary artery disease): stent was placed in 2000 for CP at [facility], Reports repeat follow up at [facility] and was diagnosed with anxiety attack No SOB, CP or exertional SOB or CP -Continue carvedilol, statin (6) Chronic kidney disease, stage II (mild): Cr: 1.1. Baseline Cr: 1.1 -Avoid nephrotoxic agents when possible -Monitor renal functions (7) Alcohol use: Consumes 4 drinks a day. 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 See addendum Thank you for this consultation. We will follow the patient with you during their hospital stay. You can reach a member of the [facility] Hospitalist Team 12/02 via pager @ [phone]. Supervising Physician Co-Signing Physician Notes Attending addendum Patient seen and examined, care coordinated with Anamika Andersen PA-C This is a 69-year-old male with history of coronary artery disease hypertension, admitted for elective lumbar decompression surgery Denies of any chest pain no shortness of breath no cough no dyspnea on exertion Renal function at baseline Preop chest x-ray, EKG shows no acute change Patient is low risk for any acute cardio pulmonary complication for elective back surgery Do not believe patient needs any other additional studies preop Physical exam: As per general Nathaly DENNIS Please refer to further documentation by Anamika Andersen PA-C for discussion of other chronic issues Ana Rosa Grimes MD History of Present Illness Requesting Physician: Dr Bear Reason for Consultation: Pre-op evaluation Attending Physician: Gregorio Bear DO History of Present Illness Pt is 69 y/o M with PMH HTN, HLD, h/o stent in 2000 for suspected DC that pt states was later diagnosed as panic attack, CKD II, h/o staph infection after hip replacement on chronic suppressive therapy seen in medical consultation for planned L2-L3 decompression and fusion and L3-L4 hardware removal by Dr Bear for back pain with radiculopathy greatest to RLE. Dr Bear note reports that pt had reported MRI spine on 01/08/2020 that demonstrates significant to space collapse and retrolisthesis L2-L3 with a massive disc herniation and caudal migration, creating severe central and right- sided neuroforaminal stenosis (This is unavailable to review at this time). Had pre-op labs on 01/08/2020 that were WNL except K: 3.2, had negative Covid-19 testing, CXR: no acute disease, EKG: sinus rhythm with 1st degree AV block and left axis deviation. Pt prior EKG from 2018 with 1st degree AV block. Pt denies any SOB, CP, exertional SOB or CP. He states his stent was placed in 2000 for CP and suspected DC and he reported that he had 65% blockage and had repeat cath at that time showing no stent occlusion and had follow up at [facility] and was diagnosed with anxiety attack. Pt denies any recurrent CP or SOB. No longer on medication for anxiety. Pt consumes 4 drinks a day. Denies h/o ETOH withdrawal, seizures or DT's. Denies fever/chills, diaphoresis, N/V/D/C, LONG, dizziness, syncope, vision changes, neck pain, orthopnea, palpitations, cough, sore throat, choking, otalgia, rhinorrhea, abdominal pain, weakness, e xtremity weakness, extremity edema, rashes, urinary symptoms. Allergies Allergy/AdvReac Type Severity Reaction Status Date / Time ciprofloxacin AdvReac Mild headache Verified 01/09/20 11:11 Cipro AdvReac Unknown headache Verified 12/29/15 07:05 Home Medications Home Medications Medication Instructions Recorded Confirmed Type amlodipine [Norvasc] 10 mg PO QAM 03/29/18 01/14/20 History carvedilol [Coreg] 25 mg PO BID 03/29/18 01/14/20 History doxycycline hyclate 100 mg PO BID 03/29/18 01/14/20 History hydrochlorothiazide 25 mg PO QAM 03/29/18 01/14/20 History ibuprofen 800 - 1,000 mg PO QID PRN 03/29/18 01/09/20 History losartan 50 mg PO QPM 03/29/18 01/14/20 History potassium chloride 10 meq PO BID 03/29/18 01/14/20 History simvastatin [Zocor] 40 mg PO HS 03/29/18 01/14/20 History gabapentin 300 mg capsule 300 mg PO TID cap 04/15/19 01/14/20 History docusate sodium [Colace] 100 mg PO BID 01/09/20 01/09/20 History multivitamin 1 tab PO QAM 01/09/20 01/09/20 History oxycodone [OxyContin] 10 mg PO Q6H PRN 01/09/20 01/14/20 History Patient History Medical History Alcohol use Anxiety CAD (coronary artery disease) L[facility] PCI 2000 Chronic kidney disease, stage II (mild) Follows with nephro- stable. Degenerative disc disease HLD (hyperlipidemia) Hypertension Numbness and tingling BELOW RIGHT KNEE Osteoarthritis Spinal stenosis at L4-L5 level Surgical History (Updated 01/15/20 @ 11:40 by Guanakito Basilio MD) Fusion of spine LUMBAR X 3 History of anesthesia reaction WOKE UP DISORIENTED,"ACTED CRAZY" History of cardiac cath 2000- [place]. S/S "MIMICKING HEART ATTACK" X3 - WAS FLOWN TO [place] HAD 3 CATHS DONE. SENT TO [place] TOLD WAS HAVING PANIC ATTACKS. PUT ON XANAX TOTAL [address] [place] History of colonoscopy History of endoscopic sinus surgery X2 History of heart artery stent TAXUS 3 x 12 mm LAD on 04/12/2001 History of herniorrhaphy LEFT AND RIGHT Inguinal hernias History of tonsillectomy History of total hip arthroplasty LEFTX2, RIGHT X3 History of total shoulder replacement LEFT Social History Preferred Language: Chinese Communication Ability: Effective Visual Impairment: Limited Rn Clinician Required: No Beliefs That Will Affect Care: None marital status: Current Living Situation: Spouse and Family Current Living Situation Comment: [place]OUSE/2 KIDS Other Information That Helps Us Care for You: No Feels Safe at Home: Yes Safety Concerns: Feels Safe At This Time Smoking Status: Never smoker Do You Dip or Chew Tobacco: No ; Second Hand Exposure: No ; Hx Alcohol Use: Yes (4 drinks daily) Alcohol type: beer and hard liquor Hx Substance Use: No Review of Systems Review of Systems: All systems reviewed & are unremarkable except as noted in HPI & below Physical Exam Physical Exam: General: no distress, obese Head: normocephalic, atraumatic Eyes: conjunctiva non-injected, anicteric ENT: normal inspection external ears, nose, mucous membranes moist Neck: supple, trachea midline, non-tender Lungs: clear, no respiratory distress, no wheezing/rhonchi/rales CV: RRR, no murmur, no pretibial edema Back: +healed surgical scars, +tenderness to palpation lumbar region, no discoloration Abd: normal BS, soft, protuberant, non-tender Ext: no cyanosis, no calf tenderness, pedal pushes and pulls intact bilaterally, distal pulses intact Neuro: A&O x 3, no focal deficits noted, normal affect Skin: warm, dry Results & Data ([facility]) Laboratory Results Short CBC 01/14/20 Range/Units 17:12 WBC 8.23 (4.8-10.8) K/uL Hgb 17.8 (14.0-18.0) g/dL Hct 50.0 (42-52) % Plt Count 147 (130-400) K/uL BMP 01/14/20 17:12 Sodium 139 Potassium 3.1 L Chloride 111 H Carbon Dioxide 25 BUN 23 H Creatinine 1.10 Glucose 99 Calcium 9.3 Liver Function 01/14/20 Range/Units 17:12 Total Bilirubin 0.7 (0.2-1) mg/dl AST 57 H (15-37) U/L ALT 94 H (12-78) U/L Alkaline Phosphatase 103 (45-117) U/L Albumin 3.9 (3.4-5.0) gm/dl (1) Hypertension Hypertension type: essential hypertension Qualified Code(s): I10 - Essential (primary) hypertension
[2020-01-14] MEDS ORDERED: POTASSIUM CHLORIDE 20 MEQ TABCR PO STA (18:26)
[2020-01-14] MEDS ORDERED: LORazepam 1 MG TAB PO PRN (18:42)
[2020-01-14] MEDS: DOCUSATE SODIUM 100 MG CAP PO SCH (20:08)
[2020-01-14] MEDS: OXYCODONE HCL IR 5 MG TAB (IMMEDIATE RELEASE) PO PRN (20:08)
[2020-01-14] MEDS: DOXYCYCLINE HYCLATE 100 MG CAP PO SCH (20:09)
[2020-01-14] MEDS: carvediloL 25 MG TAB PO SCH (20:09)
[2020-01-14] MEDS: SIMVASTATIN 40 MG TAB PO SCH (20:09)
[2020-01-14] MEDS: LOSARTAN POTASSIUM 50 MG TAB PO SCH (20:09)
[2020-01-14] MEDS: GABAPENTIN 300 MG CAP PO SCH (20:09)
[2020-01-14] MEDS: POTASSIUM CHLORIDE 10 MEQ TABCR PO SCH (20:09)
[2020-01-14] MEDS ORDERED: DOCUSATE SODIUM 100 MG CAP PO SCH (21:00)
[2020-01-15] MEDS: OXYCODONE HCL IR 5 MG TAB (IMMEDIATE RELEASE) PO PRN ×3 (06:41→22:28)
[2020-01-15] MEDS ORDERED: POTASSIUM CHLORIDE 20 MEQ TABCR PO ONE (07:30)
[2020-01-15] MEDS: DOCUSATE SODIUM 100 MG CAP PO SCH ×2 (08:31→20:34)
[2020-01-15] MEDS: GABAPENTIN 300 MG CAP PO SCH ×3 (08:32→20:34)
[2020-01-15] MEDS: POTASSIUM CHLORIDE 10 MEQ TABCR PO SCH ×2 (08:32→20:34)
[2020-01-15] MEDS: carvediloL 25 MG TAB PO SCH ×2 (08:32→20:34)
[2020-01-15] MEDS: MULTIVITAMIN TAB PO SCH (08:32)
[2020-01-15] MEDS: DOXYCYCLINE HYCLATE 100 MG CAP PO SCH ×2 (08:33→20:34)
[2020-01-15] MEDS: AMLODIPINE BESYLATE 5 MG TAB PO SCH (08:33)
--- NOTE | 2020-01-15 08:47 | XRay Report ---
XR chest 1V portable HISTORY: pre op clearance COMPARISON: Chest 01/08/2020. FINDINGS: There are low lung volumes. No new focal lung consolidations to suggest pneumonia. No evide nce for pulmonary edema. Cardiac silhouette is mildly enlarged. No pleural effusions. No pneumothorax . Partially visualized left shoulder prosthesis. IMPRESSION: Mild enlargement of the cardiac silhouette which could be accentuated by the low lung volumes. Otherw ise, no acute process within the chest. ACT 112: Negative or not required by law. Electronically signed by: Adonay Eduardo M.D. 01/15/2020 7:55 AM
--- NOTE | 2020-01-15 11:43 | Cardiology Consultation ---
Date of Consultation January 15, 2020 Assessment & Plan (1) CAD (coronary artery disease): (2) HLD (hyperlipidemia): (3) Hypertension: (4) Encounter for pre-operative examination: ASSESSMENT/PLAN: 1. CAD s/p LAD PCI (2000): No angina or heart failure symptoms. Recommend that he resume aspirin 81 mg daily indefinitely. If able during this hospitalization, would recommend restarting this medication unless prohibited by Dr. Bear for his upcoming spinal surgery. Rationale for this discussed with Mr. Weeks. Continue beta-tammi throughout the perioperative period, including the morning of surgery. Continue statin therapy. 2. Hypertension: Blood pressure has been normotensive to mildly hypertensive. Continue current regimen for now. 3. Dyslipidemia: Would consider high-intensity statin therapy in place of simvastatin but this can be done as an outpatient. 4. Preoperative cardiac assessment: He is able to achieve greater than 4 METS without anginal symptoms. Low cardiac risk for upcoming surgery which has been deemed urgent by Orthopedics. Recommend beta-tammi at home dose as noted above. No further cardiac evaluation necessary at this time. 5. Disposition: Cardiology will sign off at this time. Please call with any other questions or concerns. Hypokalemia is being addressed by hospitalist service. Thank you for allowing me to participate in the care of your patient. Please call for any other questions or concerns. Sincerely, Tomas Basilio M.D. History of Present Illness Reason for Consultation: CAD; Preoperative cardiac assessment Requesting Physician: Dr. Bear Attending Physician: Gregorio Bear, History of Present Illness Mr. Weeks is a pleasant 69-year-old gentleman with a history significant for CAD s/p LAD PCI 2000, hypertension, dyslipidemia, CKD, and lumbar spinal stenosis. He was admitted to [facility] on 01/14/[address] Bear with plans of urgent decompression and fusion of L2 and L3 with removal of instrumentation of L3 and L4. He has been experiencing back pain with radiculopathy. His cardiac history began in 2000. He developed chest discomfort and shortness of breath and was transferred from [facility] to [place] in March of 2001. He underwent cardiac catheterization on 04/11/2001 and was found to have a 65% lad lesion. On 04/12/2001, he underwent PCI with a Taxus 3 x 12 mm FOREIGN stent. Exactly 1 week later, he had the same symptoms and was once again life flighted to [facility]. He underwent another cardiac catheterization demonstrating patent stent and no other significant CAD. He was discharged home. Exactly 1 week later he had the same symptoms and once again was recommended to have a cardiac catheterization but he declined. He then followed up at [facility] in [place] and was told by email designer there that he was suffering from panic attacks. He was given Lexapro and Xanax and his symptoms resolved. He has not had any further chest pain or shortness of breath. Despite his lumbar spinal issues, he is able to ambulate up Flights of stairs and also able to grocery shop up and down the aisles without chest pain or shortness of breath. He denies syncope, near-syncope, palpitations, edema, or bleeding such as melena, hematochezia, or hematuria. A few years ago, aspirin was discontinued while he was having issues with recurrent staph infections from hip surgeries. He states that he had kidney issues at that time as well. While not taking aspirin, he has been taking significant amounts of ibuprofen, higher than typical recommended dosing due to his pain. He has had echocardiogram studies done throughout the years with his most recent being last year with his PCP. Reportedly, his LV systolic function was normal. Review of systems: As above. Review of systems otherwise negative/unremarkable. Family history: Father had stroke at age 82. Mother had dementia. No known premature CAD. Social history: Denies smoking. He has consumed 4 alcoholic beverages every day for 30 years between the hours of 6:00 p.m. and 8:00 p.m.. No drugs. Lives at home with his second , Denise. He has 3 children with his first . He has 2 step children with his second . 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 He is unaccompanied. Allergies Allergy/AdvReac Type Severity Reaction Status Date / Time ciprofloxacin AdvReac Mild headache Verified 01/09/20 11:11 Cipro AdvReac Unknown headache Verified 12/29/15 07:05 Home Medications Home Medications Medication Instructions Recorded Confirmed Type amlodipine [Norvasc] 10 mg PO QAM 03/29/18 01/14/20 History carvedilol [Coreg] 25 mg PO BID 03/29/18 01/14/20 History doxycycline hyclate 100 mg PO BID 03/29/18 01/14/20 History hydrochlorothiazide 25 mg PO QAM 03/29/18 01/14/20 History ibuprofen 800 - 1,000 mg PO QID PRN 03/29/18 01/09/20 History losartan 50 mg PO QPM 03/29/18 01/14/20 History potassium chloride 10 meq PO BID 03/29/18 01/14/20 History simvastatin [Zocor] 40 mg PO HS 03/29/18 01/14/20 History gabapentin 300 mg capsule 300 mg PO TID cap 04/15/19 01/14/20 History docusate sodium [Colace] 100 mg PO BID 01/09/20 01/09/20 History multivitamin 1 tab PO QAM 01/09/20 01/09/20 History oxycodone [OxyContin] 10 mg PO Q6H PRN 01/09/20 01/14/20 History Patient History Medical History Alcohol use Anxiety CAD (coronary artery disease) LAD PCI 2000 Chronic kidney disease, stage II (mild) Follows with nephro- stable. Degenerative disc disease HLD (hyperlipidemia) Hypertension Numbness and tingling BELOW RIGHT KNEE Osteoarthritis Spinal stenosis at L4-L5 level Surgical History (Updated 01/15/20 @ 11:40 by Guanakito Basilio MD) Fusion of spine LUMBAR X 3 History of anesthesia reaction WOKE UP DISORIENTED,"ACTED CRAZY" History of cardiac cath 2001- [facility]. S/S "MIMICKING HEART ATTACK" X3 - WAS FLOWN TO [facility] HAD 3 CATHS DONE. SENT TO [facility] TOLD WAS HAVING PANIC ATTACKS. PUT ON XANAX TOTAL [address] [facility] History of colonoscopy History of endoscopic sinus surgery X2 History of heart artery stent TAXUS 3 x 12 mm LAD on 04/12/2001 History of herniorrhaphy LEFT AND RIGHT Inguinal hernias History of tonsillectomy History of total hip arthroplasty LEFTX2, RIGHT X3 History of total shoulder replacement LEFT Social History Preferred Language: Yi Communication Ability: Effective Visual Impairment: Limited Oral Surgeon Required: No Beliefs That Will Affect Care: None marital status: Current Living Situation: Spouse and Family Current Living Situation Comment: SPOUSE/2 KIDS Other Information That Helps Us Care for You: No Feels Safe at Home: Yes Safety Concerns: Feels Safe At This Time Smoking Status: Never smoker Do You Dip or Chew Tobacco: No ; Second Hand Exposure: No ; Hx Alcohol Use: Yes (4 drinks daily) Alcohol type: beer and hard liquor Hx Substance Use: No Physical Exam Physical Exam: Gen.: No acute distress. Alert and oriented. HEENT: Anicteric sclera. Neck: No JVD. No bruits. Normal carotid upstrokes bilaterally. Cardiac: PMI was nonpalpable. No ventricular heave. Regular. Normal S1-S2. No murmurs, rubs, or gallops. Pulmonary: Clear to auscultation bilaterally without wheezes, rales, or rhonchi. Abdomen: Soft, nontender, nondistended, with normoactive bowel sounds. No bruits noted. Extremities: 2+ radial pulses bilaterally. 2+ posterior tibialis pulses bilaterally. No edema or cyanosis. Psychiatric: Affect appears appropriate. Results & Data ([facility]) Vital Signs (Past 12 Hours) Vital Signs Temp Pulse Resp BP Pulse Ox Pulse Ox 01/15/20 07:18 36.6 C 62 18 138/94 95 01/15/20 00:05 92 Laboratory Results Laboratory Results - last 24 hr 01/14/20 01/14/20 17:12 17:12 WBC 8.23 RBC 5.23 Hgb 17.8 Hct 50.0 MCV 95.6 MCH 34.0 MCHC 35.6 RDW Std Deviation 45.8 RDW Coeff of Horace 13.2 Plt Count 147 MPV 10.6 H Immature Gran % (Auto) 0.4 Neut % (Auto) 59.2 Lymph % (Auto) 24.4 [place] % (Auto) 9.7 Eos % (Auto) 5.8 Baso % (Auto) 0.5 Neut # (Auto) 4.87 Lymph # (Auto) 2.01 [place] # (Auto) 0.80 H Eos # (Auto) 0.48 Baso # (Auto) 0.04 Immature Gran # (Auto) 0.03 H Sodium 139 Potassium 3.1 L Chloride 111 H Carbon Dioxide 25 Anion Gap 3.0 BUN 23 H Creatinine 1.10 Est Cr Clr Drug Dosing 90.2 Est GFR ( Amer) 80.1 Est GFR (Non-Af Amer) 69.1 BUN/Creatinine Ratio 20.7 H Glucose 99 Calcium 9.3 Total Bilirubin 0.7 AST 57 H ALT 94 H Alkaline Phosphatase 103 Total Protein 7.6 Albumin 3.9 Globulin 3.7 Albumin/Globulin Ratio 1.1 Diagnostic Findings ECG personally reviewed: ECG 01/08/2020: Sinus rhythm with first-degree AV block at 75 bpm. Left axis deviation. Echo 04/07/2018: Normal LV systolic function. EF 65-70%. Normal wall motion. Dilated RV with mildly to moderately reduced systolic function. No significant valvular abnormalities. Medications Administered Current Inpatient Medications Acetaminophen (Tylenol) 1,000 mg PO Q8H PRN PRN Reason: MILD Pain Rating 1,2,3 Stop: 02/13/20 15:32 Amlodipine Besylate (Norvasc) 10 mg PO QAM [facility] Stop: 02/14/20 08:59 Last Admin: 01/15/20 08:33 Dose: 10 mg Documented by: Carvedilol (Coreg) 25 mg PO BID [facility] Stop: 02/13/20 20:59 Last Admin: 01/15/20 08:32 Dose: 25 mg Documented by: Docusate Sodium (Colace) 100 mg PO BID [facility] Stop: 02/13/20 20:59 Last Admin: 01/15/20 08:31 Dose: 100 mg Documented by: Doxycycline Hyclate (Vibramycin) 100 mg PO BID [facility] Stop: 02/13/20 20:59 Last Admin: 01/15/20 08:33 Dose: 100 mg Documented by: Gabapentin (Neurontin) 300 mg PO TID [facility] Stop: 02/13/20 20:59 Last Admin: 01/15/20 08:32 Dose: 300 mg Documented by: Hydromorphone HCl (Dilaudid) 0.5 mg IV Q3H PRN PRN Reason: moderate pain (scale 4-6) Stop: 01/28/20 15:32 Hydromorphone HCl (Dilaudid) 1 mg IV Q3H PRN PRN Reason: severe pain (scale 7-10) Stop: 01/28/20 15:32 Promethazine HCl 12.5 mg/ (Sodium Chloride) 50.5 mls @ 204 mls/hr IV Q6H PRN PRN Reason: Nausea &/or Vomiting Stop: 02/13/20 15:32 Lorazepam (Ativan) 1 mg in 2 mls @ 2 mls/min IV Q6H PRN PRN Reason: Anxiety/Spasms Stop: 02/13/20 15:32 Lorazepam (Ativan) 1 mg PO Q6H PRN PRN Reason: Anxiety/spasms Stop: 02/13/20 15:32 Lorazepam (Ativan) 1 mg PO ONE PRN; Protocol PRN Reason: EtoH Withdrawal AWSS 6-10 Losartan Potassium (Cozaar) 50 mg PO QPM [facility] Stop: 02/13/20 20:59 Last Admin: 01/14/20 20:09 Dose: 50 mg Documented by: Metoclopramide HCl (Reglan) 10 mg IV Q6H PRN PRN Reason: Nausea &/or Vomiting Stop: 02/13/20 15:32 Multivitamins (Multivitamin Tab) 1 tab PO QAM [facility] Stop: 02/14/20 08:59 Last Admin: 01/15/20 08:32 Dose: 1 tab Documented by: Ondansetron HCl (Zofran) 4 mg IV Q6H PRN PRN Reason: Nausea &/or Vomiting Stop: 02/13/20 15:32 Ondansetron HCl (Zofran Odt) 4 mg PO Q6H PRN PRN Reason: Nausea Stop: 02/13/20 15:32 Oxycodone HCl (Roxicodone Immediate Rel) 5 - 10 mg PO Q4H PRN PRN Reason: Moderate-Severe Pain Stop: 01/28/20 15:32 Last Admin: 01/15/20 06:41 Dose: 10 mg Documented by: Potassium Chloride (Klor-Con M10) 10 meq PO BID [facility] Stop: 02/13/20 20:59 Last Admin: 01/15/20 08:32 Dose: 10 meq Documented by: Simvastatin (Zocor) 40 mg PO HS [facility] Stop: 02/13/20 20:59 Last Admin: 01/14/20 20:09 Dose: 40 mg Documented by: Tramadol HCl (Ultram) 50 - 100 mg PO Q4H PRN PRN Reason: Moderate-Severe Pain Stop: 02/13/20 15:32 PG Care Time/CCT Total # of Minutes Spent Total Time Spent with Patient: Total time spent is greater than 50% in coordination of care (as documented) at patient's floor/unit and/or counseling patient: Coding Level of Care Code 66361 Inpt Consult Level 4 Diagnoses CAD (coronary artery disease) I25.10 HLD (hyperlipidemia) E78.5 Hypertension I10 Hypertension type: essential hypertension Encounter for pre-operative examination Z01.818 (1) Hypertension Hypertension type: essential hypertension Qualified Code(s): I10 - Essential (primary) hypertension
--- NOTE | 2020-01-15 11:43 | Orthopedic Progress Note ---
Date of Service January 15, 2020 Assessment & Plan (1) Neurogenic claudication due to lumbar spinal stenosis: This time we are awaiting final clearance from cardiology. He was made n.p.o. after midnight. We will plan for surgery tomorrow. Admission and Anticipated Discharge Date Admission Date: January 14, 2020 Subjective Patient complaining of severe back and right leg pain. He is modest left leg pain is the classic L3-4 pattern. Physical Exam Physical Exam: On exam he is able to sit up in bed. Does have breakaway weakness testing the right quadriceps compared to left. Results & Data ([facility]) Vital Signs (Past 12 Hours) Vital Signs Temp Pulse Resp BP Pulse Ox Pulse Ox 01/15/20 07:18 36.6 C 62 18 138/94 95 01/15/20 00:05 92
[2020-01-15] MEDS: SIMVASTATIN 40 MG TAB PO SCH (20:34)
[2020-01-15] MEDS: LOSARTAN POTASSIUM 50 MG TAB PO SCH (20:34)
--- NOTE | 2020-01-15 22:11 | Hospitalist Progress Note ---
Date of Service January 15, 2020 Assessment & Plan (1) Neurogenic claudication due to lumbar spinal stenosis: Scheduled for OR tomorrow. (2) CAD (coronary artery disease): No anginal symptoms. Continue carvedilol, amlodipine, statin. Start aspirin postop when OK from surgical perspective. (3) Hypertension: Continue carvedilol and amlodipine. (4) Chronic kidney disease, stage II (mild): Follow. (5) Alcohol use: Consumes about 4 drinks a day. No signs / symptoms of alcohol withdrawal. 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 Has been followed by ID. On chronic suppressive therapy with doxycycline. (7) Encounter for consultation: Thank you for this consultation. We will follow the patient with you during their hospital stay. My cell # is [phone]. You can reach a member of the [facility] Medicine Team 12/02 via pager @ [phone]. Admission and Anticipated Discharge Date Admission Date: January 14, 2020 Subjective Recheck for medical management. Patient seen in their room around 1420. Ongoing low back pain. Scheduled for OR tomorrow. Seen earlier today by Cardiology. Review of Systems: Constitutional- no fever. Cardiac- no chest pain. Pulmonary- no cough or SOB. GI- no nausea, vomiting, diarrhea, melena, hematochezia. - no urinary symptoms. Otherwise, as noted above. Physical Exam Constitutional: no acute distress Respiratory: no respiratory distress Auscultation: lungs clear to auscultation bilaterally Cardiovascular: Rate/Rhythm: regular rate and regular rhythm Vessels: no JVD Extremities: no calf tenderness and no edema Gastrointestinal (Abdomen): normal bowel sounds, soft, nontender, no hepatosplenomegaly Skin: no rashes, warm and dry Psychiatric: Orientation: alert and oriented x 3 Results & Data Results & Data ([facility]) Vital Signs (Past 12 Hours) Vital Signs Temp Pulse Resp BP Pulse Ox 01/15/20 20:33 37 C 60 18 113/71 93 01/15/20 15:29 36.4 C L 58 L 16 143/91 H 92 Laboratory Results 01/14/20 17:12 01/14/20 17:12 (1) Hypertension Hypertension type: essential hypertension Qualified Code(s): I10 - Essential (primary) hypertension
[2020-01-16 06:00] LABS: Hematocrit (blood only) 50.8 % (42-52); Mean Corpuscular Hemoglobin 32.8 pg (25-34); Mean Corpuscular Hgb Conc 33.5 g/dL (32-36); Mean Corpuscular Volume 98.1 fL (80-100); Mean Platelet Volume 10.8 fL (7.4-10.4); Platelet Count 124 K/uL (130-400); RDW Standard Deviation 46.2 fL (36.4-46.3); Red Blood Count 5.18 M/uL (4.7-6.1); White Blood Count 6.27 K/uL (4.8-10.8)
[2020-01-16] MEDS: OXYCODONE HCL IR 5 MG TAB (IMMEDIATE RELEASE) PO PRN ×2 (06:19→11:52)
[2020-01-16 06:35] LABS: BUN Creatinine Ratio 21.6 (10-20); Calcium 8.8 mg/dl (8.5-10.1); Creatinine Clr Calc Pharmacy 111.3 ml/min; Est GFR (African American) 102.5; Est GFR (Non-African American) 88.5; Potassium 3.3 mmol/L (3.5-5.1)
--- NOTE | 2020-01-16 07:27 | History & Physical Bridge Note ---
Date of Service January 16, 2020 History & Physical Bridge Note I have examined the patient, reviewed the History & Physical and in the interval since the performance of the History & Physical I have noted the following changes of clinical significance: no changes noted
[2020-01-16] MEDS ORDERED: ONDANSETRON INJ 2 MG/ML 2 ML VIAL IV PRN ×2 (09:03→18:03)
[2020-01-16] MEDS ORDERED: HYDROmorphone INJ 2 MG/ML SYR/VIAL IV PRN (09:03)
[2020-01-16] MEDS ORDERED: ePHEDrine sulfate 50 MG/ML AMP IV PRN (09:03)
[2020-01-16] MEDS ORDERED: ATROPINE SULFATE 0.1 MG/ML 10ML SYR IV PRN (09:03)
[2020-01-16] MEDS: POTASSIUM CHLORIDE / WTR 10 MEQ/100 ML PLCT IV SCH ×4 (09:14→10:37)
[2020-01-16] MEDS: DOXYCYCLINE HYCLATE 100 MG CAP PO SCH ×3 (09:15→21:13)
[2020-01-16] MEDS: GABAPENTIN 300 MG CAP PO SCH ×4 (09:15→21:13)
[2020-01-16] MEDS: carvediloL 25 MG TAB PO SCH ×3 (09:15→21:13)
[2020-01-16] MEDS: POTASSIUM CHLORIDE 10 MEQ TABCR PO SCH ×3 (09:15→21:13)
[2020-01-16] MEDS: DOCUSATE SODIUM 100 MG CAP PO SCH ×3 (09:15→21:13)
[2020-01-16] MEDS: AMLODIPINE BESYLATE 5 MG TAB PO SCH ×2 (09:15→09:45)
[2020-01-16] MEDS: MULTIVITAMIN TAB PO SCH ×2 (09:15→09:45)
[2020-01-16] MEDS ORDERED: MIDAZOLAM HCL 1 MG/ML 2ML VIAL ONE (13:21)
[2020-01-16] MEDS ORDERED: fentaNYL citrate 100 MCG/2 ML VIAL ONE ×2 (13:21→17:31)
[2020-01-16] MEDS ORDERED: BUPIVACAINE/EPINEPHRINE 0.25% 1:200,000 30 ML VIAL ONE (14:01)
[2020-01-16] MEDS ORDERED: BACITRACIN INJ 50,000 UNIT VIAL ONE (14:01)
[2020-01-16] MEDS ORDERED: VANCOMYCIN HCL 1000MG/20ML VIAL ONE (14:14)
[2020-01-16] MEDS ORDERED: GENTAMICIN SULFATE 40 MG/ML 2 ML VIAL ONE (14:16)
[2020-01-16] MEDS ORDERED: ALBUMIN HUMAN 5% 12.5 GM/250 ML VIAL IV ONE ×2 (14:47→16:25)
[2020-01-16] MEDS ORDERED: DEXAMETHASONE SOD INJ 4 MG/ML VIAL ONE (14:47)
[2020-01-16] MEDS ORDERED: ROCURONIUM BROMIDE 10 MG/ML 5 ML VIAL IV ONE ×5 (14:47)
[2020-01-16] MEDS ORDERED: PROPOFOL IV EMULSION 10 MG/ML 20 ML VIAL IV ONE (14:47)
[2020-01-16] MEDS ORDERED: ePHEDrine sulfate 50 MG/ML AMP ONE (14:47)
[2020-01-16] MEDS ORDERED: ONDANSETRON INJ 2 MG/ML 2 ML VIAL ONE (14:47)
[2020-01-16] MEDS ORDERED: LIDOCAINE HCL 2% 2 ML VIAL/AMP(20MG/ML) INFIL ONE (14:47)
[2020-01-16] MEDS ORDERED: CEFAZOLIN 250 MG/ML 1 GM VIAL ONE (14:50)
[2020-01-16] MEDS ORDERED: HYDROmorphone INJ 2 MG/ML SYR/VIAL ONE (15:09)
[2020-01-16] MEDS ORDERED: SURGICEL ABSORB HEMOSTAT 2IN X 14IN TOP ONE (16:20)
[2020-01-16] MEDS ORDERED: FLOSEAL HEMOSTATIC MATRIX 10ML TOP ONE (16:27)
--- NOTE | 2020-01-16 16:37 | Fluoroscopy Report ---
FL lumbar spine 2-3V CLINICAL HISTORY: L2-L3 DECOMPRESSION AND FUSION COMPARISON STUDY: 04/08/2018 FLUOROSCOPY TIME: 6 seconds NUMBER OF FLUOROSCOPIC IMAGES: 2 FINDINGS: Image intensifier utilized for operative revision of a lumbar laminectomy and fusion IMPRESSION: Image intensifier utilization for operative revision of a lumbar laminectomy and fusion. ACT 112: Negative or not required by law. The above report was generated using voice recognition software. It may contain grammatical, syntax or spelling errors. Electronically signed by: Cong Mejia M.D. 01/16/2020 4:35 PM
--- NOTE | 2020-01-16 16:51 | Operative Report ---
Post Operative Report Pre & Post Diagnosis Operation Date: 01/16/20 07:00 Pre-Op Diagnosis: Lumbar spinal stenosis with herniated nucleus pulposus L2-3 Obesity Post-Op Diagnosis: Same I identified the patient and participated in the time-out.: Yes Procedure Operation Date: 01/16/20 07:00 Actual Procedures #1 removal of posterior instrumentation L3-4. #2 exploration of fusion L3-4. #3 lumbar decompression with bilateral medial facetectomies and foraminotomies L2-3. #4 posterior spinal fusion L2-3. #5 placed a posterior instrumentation L2-3 L3-4. #6 interbody fusion L2-3. #7 placed a peek cage 12 x 26 mm at L2-3. #8 placement of locally harvested morselized autograft in the posterior lateral gutters. #9 placement infuse collagen sponge, master graft in the posterior lateral gutters and ostial amp and interbody space. Surgeon Gregorio Bear, DO Health Outcomes Liaison None Estimated Blood Loss 600 Findings See Below Patient is 6 foot 1 inches tall weighing over 124 kg with a BMI in excess of 36. Patient's body habitus did add significant technical difficulty requiring her deepest retractors and longus instruments in order to perform his procedure this combined with an EBL of greater than 600 cc created at least 50% increase in operative time. Specimens None Indications This is a 69-year-old male who presents above-mentioned diagnosis after failing extensive course of nonoperative care having marked decline in status he is here for surgical intervention. Description of Procedure Patient was met with identified informed consent obtained. Patient was then taken to the operative suite underwent an patient placed in a prone position on the Edi table on top of the Juan frame. All bony prominences well-padded eyes inspected to ensure no external pressure placed upon them. This point the lumbar spine was prepped and draped in normal sterile fashion. Sharp dissection with the assistance of Bovie cautery was performed down to and exposing the lamina and transverse processes of L2-L3 and instrumentation at L3-L4. Then proceeded move the hardware bilaterally exploring the fusion mass noting it to be intact. #4 the complete laminectomy of L2 including bilateral medial facetectomies and foraminotomies addressing severe lateral recess stenosis as well as a massive disc herniation that migrated cephalad on the right side. After complete decompression pedicle screws were placed in L2-L3 bilaterally with the assistance of fluoroscopy and appropriately sized jean placed. By way of a transforaminal approach on the right complete discectomy was performed endplates curetted to subcortical bleeding bone and a 12 x 26 mm peek cage filled with osteo-bone graft tapped in position. The rods were then locked into final position bilaterally. The transverse processes of L2 and L3 burred to subcortical bleeding bone. Infuse collagen sponge master graft local autograft placed in the posterior lateral gutters. 15 round MONIK drain inserted. Incision was then closed with 1 Vicryl the fascia 2-0 Vicryl subcutaneously and 4 Monocr yl for final skin closure. Steri-Strip sterile dressing was placed. Patient will continue PACU stable condition. Please note spinal cord monitoring was utilized that the procedure no changes noted. I attest to the content of the Intraoperative Record and any orders documented therein. Any exceptions are noted below.
[2020-01-16] MEDS ORDERED: PHENYLEPHRINE 100MCG/ML 5ML SYR ONE (17:15)
[2020-01-16] MEDS ORDERED: NEOSTIGMINE METHYLSULFATE 5 MG/5 ML SYR ONE (17:15)
[2020-01-16] MEDS ORDERED: GLYCOPYRROLATE 0.2 MG/ML VIAL ONE (17:15)
--- NOTE | 2020-01-16 17:30 | Anesthesiology Progress Note ---
Date of Service January 16, 2020 Anesthesia Post Procedure Vital Signs Vital Signs: Temp Pulse Pulse Resp BP BP Pulse Ox 01/16/20 17:25 69 15 124/79 100 01/16/20 17:15 65 19 122/77 92 01/16/20 17:05 36.1 C L 79 15 130/89 92 01/16/20 13:02 59 L 18 132/79 93 01/16/20 07:24 36.9 C 79 18 150/88 H 94 01/16/20 06:10 36.7 C 65 20 137/92 95 01/15/20 23:27 37.0 C 58 L 14 133/80 94 01/15/20 20:33 37 C 60 18 113/71 93 Pain Intensity Right Leg: Pain Intensity: 4 Lower Back: Pain Intensity: 8 Transfer of Care Handoff Completed per policy Notes Mental Status: alert / awake / arousable and participated in evaluation Patient Amnestic to Procedure: Yes Nausea / Vomiting: adequately controlled Pain: adequately controlled Airway Patency, RR, SpO2: stable & adequate BP & HR: stable & adequate Hydration State: stable & adequate Anesthetic Complications: no major complications apparent and Pt Satisfied with anesthetic care
[2020-01-16] MEDS: fentaNYL citrate 100 MCG/2 ML VIAL IV PRN ×4 (17:31→17:46)
[2020-01-16] MEDS ORDERED: NALOXONE HCL 0.4 MG/1 ML VIAL/CARP IV PRN (18:03)
[2020-01-16] MEDS ORDERED: DO NOT ADMINISTER PNEUMOCOCCAL VACCINE PRN (18:03)
[2020-01-16] MEDS ORDERED: bisacodyL 10 MG SUPP PR PRN (18:03)
[2020-01-16] MEDS ORDERED: ALUMINUM/MAGNESIUM SUSP 30 ML UDC PO PRN (18:03)
[2020-01-16] MEDS ORDERED: SOD PHOSPHATE/SOD BIPHOSPHATE ENEMA 132 ML BTL PR PRN (18:03)
[2020-01-16] MEDS ORDERED: DO NOT ADMINISTER FLU VACCINE PRN (18:03)
[2020-01-16] MEDS ORDERED: PROMETHAZINE HCL 12.5 MG in SODIUM CHLORIDE 0.9% 50 ML IV PRN (18:03)
[2020-01-16] MEDS ORDERED: MAGNESIUM HYDROXIDE SUSP 30 ML UDC PO PRN (18:03)
[2020-01-16] MEDS ORDERED: LORazepam 0.5 MG/1 ML VIAL IV PRN (18:03)
[2020-01-16] MEDS ORDERED: ACETAMINOPHEN 500 MG TAB PO PRN (18:03)
[2020-01-16] MEDS ORDERED: ONDANSETRON 4 MG OD TAB PO PRN (18:03)
[2020-01-16] MEDS ORDERED: ACETAMINOPHEN 1,000 MG/100 ML VIAL IV PRN (18:03)
[2020-01-16] MEDS ORDERED: FAMOTIDINE 20 MG TAB PO PRN (18:03)
[2020-01-16] MEDS ORDERED: METOCLOPRAMIDE HCL INJ 5 MG/ML 2 ML VIAL IV PRN (18:03)
[2020-01-16] MEDS: LACTATED RINGER'S 1,000 ML IV SCH (18:51)
[2020-01-16] MEDS: HYDROmorphone INJ 1 MG/ML SYRINGE IV PRN ×2 (19:46→22:51)
[2020-01-16] MEDS: DOCUSATE SODIUM/SENNA 50/8.6MG TAB PO SCH (21:13)
[2020-01-16] MEDS: LOSARTAN POTASSIUM 50 MG TAB PO SCH (21:13)
[2020-01-16] MEDS: SIMVASTATIN 40 MG TAB PO SCH (21:13)
[2020-01-16] MEDS: CEFAZOLIN 2000MG 2,000 MG/15 ML SYR IV SCH (21:13)
--- NOTE | 2020-01-16 22:56 | Hospitalist Progress Note ---
Date of Service January 16, 2020 Assessment & Plan (1) Neurogenic claudication due to lumbar spinal stenosis: POD # 0. (2) CAD (coronary artery disease): No anginal symptoms. Continue carvedilol, amlodipine, statin. Start aspirin postop when OK from surgical perspective. (3) Hypertension: Continue carvedilol and amlodipine. (4) Chronic kidney disease, stage II (mild): Follow. (5) Alcohol use: Consumes about 4 drinks a day. No signs / symptoms of alcohol withdrawal. Follow. 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 Has been followed by ID. On chronic suppressive therapy with doxycycline. (7) Hypokalemia: K as low as 3.1. K today = 3.3. Replace. Follow. (8) Encounter for consultation: Thank you for this consultation. We will follow the patient with you during their hospital stay. My cell # is [phone]. You can reach a member of the [facility] Medicine Team 12/02 via pager @ [phone]. Admission and Anticipated Discharge Date Admission Date: January 16, 2020 Subjective Recheck for medical management. Patient seen in their room around 2049. Revision lumbar surgery performed this afternoon. Returned to his room postop. Doing well postoperatively. No chest pain, cough, SOB, nausea, vomiting. Pain well-controlled. Review of Systems: Constitutional- no fever. Cardiac- no chest pain. Pulmonary- no cough or SOB. GI- no nausea, vomiting, diarrhea, melena, hematochezia. - [place] cath. Otherwise, as noted above. Physical Exam Constitutional: no acute distress Respiratory: no respiratory distress Auscultation: lungs clear to auscultation bilaterally Cardiovascular: Rate/Rhythm: regular rate and regular rhythm Vessels: no JVD Extremities: no calf tenderness and no edema Gastrointestinal (Abdomen): normal bowel sounds, soft, nontender, no hepatosplenomegaly Musculoskeletal: SCD's applied Skin: no rashes, warm and dry Psychiatric: Orientation: alert and oriented x 3 Genitourinary: [place]worth cath Results & Data Results & Data ([facility]) Vital Signs (Past 12 Hours) Vital Signs Temp Pulse Pulse Pulse Resp BP Pulse Ox 01/16/20 21:07 83 129/83 01/16/20 18:46 36.6 C 7 L 18 137/86 90 01/16/20 18:03 36.9 C 58 L 18 131/81 90 01/16/20 17:55 36.1 C L 54 L 19 146/87 H 99 01/16/20 17:45 70 15 142/83 H 100 01/16/20 17:35 72 17 133/86 100 01/16/20 17:25 69 15 124/79 100 01/16/20 17:15 65 19 122/77 92 01/16/20 17:05 36.1 C L 79 15 130/89 92 01/16/20 13:02 59 L 18 132/79 93 Pulse Ox 01/16/20 21:07 01/16/20 18:46 01/16/20 18:03 90 01/16/20 17:55 01/16/20 17:45 01/16/20 17:35 01/16/20 17:25 01/16/20 17:15 01/16/20 17:05 01/16/20 13:02 (1) Hypertension Hypertension type: essential hypertension Qualified Code(s): I10 - Essential (primary) hypertension
[2020-01-17] MEDS: LACTATED RINGER'S 1,000 ML IV SCH ×2 (01:08→07:57)
[2020-01-17] MEDS: OXYCODONE HCL IR 5 MG TAB (IMMEDIATE RELEASE) PO PRN ×4 (04:09→20:51)
[2020-01-17] MEDS: ACETAMINOPHEN 500 MG TAB PO PRN (04:12)
[2020-01-17] MEDS: HYDROmorphone INJ 0.5 MG/0.5 ML SYR IV PRN ×2 (05:13→18:27)
[2020-01-17] MEDS: POLYETHYLENE (MIRALAX) 17 GM PACK PO SCH ×4 (06:34→23:45)
[2020-01-17] MEDS: CEFAZOLIN 2000MG 2,000 MG/15 ML SYR IV SCH (06:34)
[2020-01-17 07:42] LABS: Basophils # (auto) 0.02 K/uL (0-0.2); Basophils % (auto) 0.2 %; Eosinophils # (auto) 0.01 K/uL (0-0.5); Eosinophils % (auto) 0.1 %; Hematocrit (blood only) 41.8 % (42-52); Hemoglobin 14.5 g/dL (14.0-18.0); Immature Granulocytes # (auto) 0.05 K/uL (0.00-0.02); Immature Granulocytes % (auto) 0.4 %; Lymphocytes # (auto) 1.35 K/uL (1.2-3.4); Lymphocytes % (auto) 11.8 %; Mean Corpuscular Hemoglobin 33.6 pg (25-34); Mean Corpuscular Hgb Conc 34.7 g/dL (32-36); Mean Platelet Volume 10.8 fL (7.4-10.4); Monocytes # (auto) 1.01 K/uL (0.11-0.59); Monocytes % (auto) 8.8 %; Neutrophils # (auto) 8.99 K/uL (1.4-6.5); Neutrophils % (auto) 78.7 %; Platelet Count 122 K/uL (130-400); Red Blood Count 4.31 M/uL (4.7-6.1); White Blood Count 11.43 K/uL (4.8-10.8)
[2020-01-17 08:14] LABS: BUN Creatinine Ratio 16.9 (10-20); Calcium 8.8 mg/dl (8.5-10.1); Creatinine Clr Calc Pharmacy 97.1 ml/min; Est GFR (African American) 87.7; Est GFR (Non-African American) 75.7
[2020-01-17] MEDS: carvediloL 25 MG TAB PO SCH ×2 (09:09→20:43)
[2020-01-17] MEDS: DOCUSATE SODIUM 100 MG CAP PO SCH ×2 (09:09→20:43)
[2020-01-17] MEDS: AMLODIPINE BESYLATE 5 MG TAB PO SCH (09:10)
[2020-01-17] MEDS: POTASSIUM CHLORIDE 10 MEQ TABCR PO SCH ×2 (09:10→20:42)
[2020-01-17] MEDS: DOXYCYCLINE HYCLATE 100 MG CAP PO SCH ×2 (09:10→20:41)
[2020-01-17] MEDS: MULTIVITAMIN TAB PO SCH (09:10)
[2020-01-17] MEDS: GABAPENTIN 300 MG CAP PO SCH ×3 (09:10→20:44)
--- NOTE | 2020-01-17 10:05 | Orthopedic Progress Note ---
Date of Service January 17, 2020 Assessment & Plan (1) Neurogenic claudication due to lumbar spinal stenosis: At this time we will continue physical therapy monitor his MONIK output anticipate discharge home in the next few days. Present on Admission?: Yes Admission and Anticipated Discharge Date Admission Date: January 16, 2020 Subjective Patient has marked improvement of his leg pain. Back pain is controlled. Physical Exam Physical Exam: Patient is in the chair at the bedside. Is good strength testing. Appears comfortable. Results & Data ([facility]) Vital Signs (Past 12 Hours) Vital Signs Temp Pulse Resp BP Pulse Ox 01/17/20 06:35 36.7 C 78 20 122/78 96 01/17/20 02:50 36.7 C 76 20 138/88 90 01/17/20 00:08 77 01/16/20 23:00 36.6 C 130 H 20 117/75 93
[2020-01-17] MEDS: HYDROmorphone INJ 1 MG/ML SYRINGE IV PRN ×2 (12:39→23:45)
--- NOTE | 2020-01-17 17:49 | Hospitalist Progress Note ---
Date of Service January 17, 2020 Assessment & Plan (1) Neurogenic claudication due to lumbar spinal stenosis: POD # 1. (2) CAD (coronary artery disease): No anginal symptoms. Continue carvedilol, amlodipine, statin. Start aspirin postop when OK from surgical perspective. (3) Hypertension: Continue carvedilol, amlodipine, losartan. (4) Chronic kidney disease, stage II (mild): Serum creatinine today = 1.02. Follow. (5) Alcohol use: Consumes about 4 drinks a day. No signs / symptoms of alcohol withdrawal. Follow. 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 Has been followed by ID. On chronic suppressive therapy with doxycycline. (7) Hypokalemia: K as low as 3.1. Replaced. K today = 4.0. Follow. (8) Encounter for consultation: Thank you for this consultation. We will follow the patient with you during their hospital stay. My cell # is [phone]. You can reach a member of the [facility] Medicine Team 12/02 via pager @ [phone]. Admission and Anticipated Discharge Date Admission Date: January 16, 2020 Physical Exam Constitutional: no acute distress sitting in chair Respiratory: no respiratory distress Auscultation: lungs clear to auscultation bilaterally Cardiovascular: Rate/Rhythm: regular rate and regular rhythm Vessels: no JVD Extremities: no calf tenderness and no edema Gastrointestinal (Abdomen): normal bowel sounds, soft, nontender, no hepatosplenomegaly Skin: no rashes, warm and dry Psychiatric: Orientation: alert and oriented x 3 Results & Data Results & Data ([facility]) Vital Signs (Past 12 Hours) Vital Signs Temp Pulse Resp BP Pulse Ox 01/17/20 15:35 37.1 C 66 18 123/69 94 01/17/20 06:35 36.7 C 78 20 122/78 96 Laboratory Results 01/17/20 07:29 01/17/20 07:29 (1) Hypertension Hypertension type: essential hypertension Qualified Code(s): I10 - Essential (primary) hypertension
[2020-01-17] MEDS: DOCUSATE SODIUM/SENNA 50/8.6MG TAB PO SCH (20:42)
[2020-01-17] MEDS: LOSARTAN POTASSIUM 50 MG TAB PO SCH (20:43)
[2020-01-17] MEDS: SIMVASTATIN 40 MG TAB PO SCH (20:44)
[2020-01-17] MEDS: LORazepam 0.5 MG TAB PO PRN (23:45)
[2020-01-18] MEDS: ACETAMINOPHEN 500 MG TAB PO PRN (04:47)
[2020-01-18] MEDS: OXYCODONE HCL IR 5 MG TAB (IMMEDIATE RELEASE) PO PRN ×3 (04:47→21:15)
[2020-01-18] MEDS: POLYETHYLENE (MIRALAX) 17 GM PACK PO SCH ×2 (04:48→08:07)
[2020-01-18] MEDS: carvediloL 25 MG TAB PO SCH ×2 (08:01→20:59)
[2020-01-18] MEDS: DOXYCYCLINE HYCLATE 100 MG CAP PO SCH ×2 (08:01→21:02)
[2020-01-18] MEDS: POTASSIUM CHLORIDE 10 MEQ TABCR PO SCH ×2 (08:01→21:01)
[2020-01-18] MEDS: MULTIVITAMIN TAB PO SCH (08:01)
[2020-01-18] MEDS: GABAPENTIN 300 MG CAP PO SCH ×3 (08:02→21:02)
[2020-01-18] MEDS: DOCUSATE SODIUM 100 MG CAP PO SCH ×2 (08:02→20:58)
[2020-01-18] MEDS: AMLODIPINE BESYLATE 5 MG TAB PO SCH (08:02)
[2020-01-18] MEDS: DEXAMETHASONE SOD PHOSPHATE 8 MG in SYRINGE 0 ML IV SCH (08:02)
[2020-01-18] MEDS: LORazepam 0.5 MG TAB PO PRN ×2 (08:07→21:16)
--- NOTE | 2020-01-18 09:18 | Orthopedic Progress Note ---
Date of Service January 18, 2020 Assessment & Plan (1) Neurogenic claudication due to lumbar spinal stenosis: At this time we will continue physical therapy monitor his MONIK output anticipate possible discharge home tomorrow. Present on Admission?: Yes Admission and Anticipated Discharge Date Admission Date: January 16, 2020 Subjective Patient is in the chair at the bedside. Specific to testing. Appears comfortable. Physical Exam Physical Exam: On exam is reasonable strength testing. Appears comfortable. Results & Data ([facility]) Vital Signs (Past 12 Hours) Vital Signs Temp Pulse Resp BP Pulse Ox 01/18/20 06:34 36.8 C 64 20 121/82 93 01/17/20 23:08 36.8 C 67 18 111/73 93
--- NOTE | 2020-01-18 12:56 | Hospitalist Progress Note ---
Date of Service January 18, 2020 Assessment & Plan (1) Neurogenic claudication due to lumbar spinal stenosis: POD # 2. (2) CAD (coronary artery disease): No anginal symptoms. Continue carvedilol, amlodipine, statin. Start aspirin postop when OK from surgical perspective. (3) Hypertension: Continue carvedilol, amlodipine, losartan. (4) Chronic kidney disease, stage II (mild): Serum creatinine yesterday = 1.02. Follow. (5) Alcohol use: Consumes about 4 drinks a day. No signs / symptoms of alcohol withdrawal. Follow. 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 Has been followed by ID. On chronic suppressive therapy with doxycycline. (7) Hypokalemia: K as low as 3.1. Replaced. K yesterday = 4.0. Follow. (8) Encounter for consultation: Thank you for this consultation. We will follow the patient with you during their hospital stay. My cell # is [phone]. You can reach a member of the [facility] Medicine Team 12/02 via pager @ [phone]. Admission and Anticipated Discharge Date Admission Date: January 16, 2020 Subjective Recheck for medical management. Patient seen in their room around 0900. Doing well postoperatively. No chest pain, cough, SOB, nausea, vomiting. Passing flatus, but still no stool. Postop pain well-controlled. Review of Systems: Constitutional- no fever. Cardiac- no chest pain. Pulmonary- no cough or SOB. GI- no nausea, vomiting, diarrhea, melena, hematochezia. - voiding without difficulty. Otherwise, as noted above. Physical Exam Constitutional: no acute distress Respiratory: no respiratory distress Auscultation: lungs clear to auscultation bilaterally Cardiovascular: Rate/Rhythm: regular rate and regular rhythm Vessels: no JVD Extremities: no calf tenderness and no edema Gastrointestinal (Abdomen): normal bowel sounds, soft, nontender, no hepatosplenomegaly Musculoskeletal: TEDS applied to lower extremities Skin: no rashes, warm and dry Psychiatric: Orientation: alert and oriented x 3 Results & Data Results & Data ([facility]) Vital Signs (Past 12 Hours) Vital Signs Temp Pulse Resp BP Pulse Ox 01/18/20 06:34 36.8 C 64 20 121/82 93 Laboratory Results 01/17/20 07:29 01/17/20 07:29 (1) Hypertension Hypertension type: essential hypertension Qualified Code(s): I10 - Essential (primary) hypertension
[2020-01-18] MEDS: LOSARTAN POTASSIUM 50 MG TAB PO SCH (21:00)
[2020-01-18] MEDS: DOCUSATE SODIUM/SENNA 50/8.6MG TAB PO SCH (21:02)
[2020-01-18] MEDS: SIMVASTATIN 40 MG TAB PO SCH (21:04)
[2020-01-19] MEDS: GABAPENTIN 300 MG CAP PO SCH ×2 (08:14→13:20)
[2020-01-19] MEDS: POTASSIUM CHLORIDE 10 MEQ TABCR PO SCH (08:14)
[2020-01-19] MEDS: DEXAMETHASONE SOD PHOSPHATE 8 MG in SYRINGE 0 ML IV SCH (08:14)
[2020-01-19] MEDS: AMLODIPINE BESYLATE 5 MG TAB PO SCH (08:15)
[2020-01-19] MEDS: carvediloL 25 MG TAB PO SCH (08:15)
[2020-01-19] MEDS: DOXYCYCLINE HYCLATE 100 MG CAP PO SCH (08:15)
[2020-01-19] MEDS: DOCUSATE SODIUM 100 MG CAP PO SCH (08:15)
[2020-01-19] MEDS: MULTIVITAMIN TAB PO SCH (08:15)
[2020-01-19] MEDS: OXYCODONE HCL IR 5 MG TAB (IMMEDIATE RELEASE) PO PRN ×2 (08:20→13:19)
[2020-01-19] MEDS: ACETAMINOPHEN 500 MG TAB PO PRN (08:20)
--- NOTE | 2020-01-19 10:37 | Hospitalist Progress Note ---
Date of Service January 19, 2020 Assessment & Plan (1) Neurogenic claudication due to lumbar spinal stenosis: POD # 3. (2) CAD (coronary artery disease): No anginal symptoms. Continue carvedilol, amlodipine, statin. Start aspirin postop when OK from surgical perspective. (3) Hypertension: Continue carvedilol, amlodipine, losartan. (4) Chronic kidney disease, stage II (mild): Serum creatinine 01/16 was 1.02. Follow. (5) Alcohol use: Consumes about 4 drinks a day. No signs / symptoms of alcohol withdrawal. Follow. 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 Has been followed by ID. On chronic suppressive therapy with doxycycline. (7) Hypokalemia: K as low as 3.1. Replaced. K 01/16 was 4.0. Follow. (8) Encounter for consultation: Thank you for this consultation. We will follow the patient with you during their hospital stay. My cell # is [phone]. You can reach a member of the [facility] Medicine Team 12/02 via pager @ [phone]. Admission and Anticipated Discharge Date Admission Date: January 16, 2020 Subjective Recheck for medical management. Patient seen in their room around 0940. Doing well postoperatively. No chest pain, cough, SOB, nausea, vomiting. Passing flatus and stool. Less postop pain. Review of Systems: Constitutional- no fever. Cardiac- no chest pain. Pulmonary- no cough or SOB. GI- no nausea, vomiting, diarrhea, melena, hematochezia. - voiding without difficulty. Otherwise, as noted above. Physical Exam Constitutional: no acute distress Respiratory: no respiratory distress Auscultation: lungs clear to auscultation bilaterally Cardiovascular: Rate/Rhythm: regular rate and regular rhythm Vessels: no JVD Extremities: no calf tenderness and no edema Gastrointestinal (Abdomen): normal bowel sounds, soft, nontender, no hepatosplenomegaly Skin: no rashes, warm and dry Psychiatric: Orientation: alert and oriented x 3 Results & Data Results & Data ([facility]) Vital Signs (Past 12 Hours) Vital Signs Temp Pulse Pulse Resp BP Pulse Ox 01/19/20 08:00 36.4 C L 64 16 149/94 H 96 01/18/20 23:12 36.8 C 70 18 151/96 H 92 (1) Hypertension Hypertension type: essential hypertension Qualified Code(s): I10 - Essential (primary) hypertension
--- NOTE | 2020-01-19 12:59 | Discharge Summary ---
Date of Service January 19, 2020 Admission HPI Per Admitting Provider This is a 69-year-old male known to us that presents with marked decline in status over the past several weeks. He did note significant right lower extremity pain with some leg pain in the left. It markedly limits his ability to stand and ambulate. He is undergone various medications including trial of oral steroids without marked improvement. Principal Diagnosis Lumbar spinal stenosis with neurogenic claudication Discharge Data Allergies Allergy/AdvReac Type Severity Reaction Status Date / Time ciprofloxacin AdvReac Mild headache Verified 01/09/20 11:11 Cipro AdvReac Unknown headache Verified 12/29/15 07:05 Consultations 01/14/20 15:33 Consult Anesthesiology Routine Consult Cardiology Routine Consult Internal Medicine Routine 01/16/20 18:03 Consult Case Management - Discharge Planning Routine Procedures Performed Operation Date: 01/16/20 07:00 Actual Procedures p L2-L3 Decompression and Fusion with Insertion of Interbody, Application of OsteoAmp and Bone Morphogenetic Protein, Spinal Cord Monitoring(Not Applicable) - Gregorio Bear DO s L3-L4 Hardware Removal(Not Applicable) - Gregorio Bear DO Ordered Studies 01/16/20 FL fluoroscopy <1hr Routine FL lumbar spine 2-3V Routine Hospital Course (1) Neurogenic claudication due to lumbar spinal stenosis: Patient underwent multilevel lumbar decompression fusion tolerated this well was taken to the orthopedic floor possibly. Postop day 1 his leg symptoms improved through #2 postop 3 MONIK drain. He had decreased probably. Strength intact. Pain controlled. Subsequently discharged home. Discharge orders instructions from the chart for further view. Total Time Total Time Spent Total Time Spent (In Minutes): 20 minutes Discharge Plan Discharge Items Patient Disposition: Home - Self-Care Reason For Visit: LUMBAR SPINAL STENOSIS Discharge Diagnosis: Lumbar spinal stenosis with herniated nucleus pulposus L2-3 Activity: As commented below Non-emergency contact: Primary Care Provider Call non-emergency contact if: you have any medication questions Follow-up/Referrals: Shorty Cortes [Primary Care Provider] - Diet: Regular Addtl Attending Provider Instructions: ACTIVITY RECOMMENDATIONS: SELF CARE INSTRUCTIONS AFTER THORACIC/LUMBAR FUSIONS 1. You may walk to your tolerance. It is good exercise for your legs and back. Expect some back and intermittent leg aches and pains. 2. You may perform "counter-top" level activities (make a sandwich, cynthia with a project, etc.). 3. No bending or lifting of more than 10 pounds or back twisting of any nature (roll like a log when turning in bed). 4. You may ride in a car for 20-30 minutes at a time. No driving until after your first visit with your doctor. 5. Frequent changes of position and restricting sitting to 30 minutes at a time will help limit the amount of back spasms and stiffness you may experience. 6. You may discontinue the use of ambulatory aids (cane, crutches, etc.) once your strength and confidence allow. 7. You may tinning machine set up operator the shower and let water strike your incision when you arrive home at least once daily. Do not take a tub bath, sit in a hot tub or go into a swimming pool until after your first recheck in the office. SPECIAL CARE INSTRUCTIONS: VERY IMPORTANT TO READ AND REVIEW A. Your surgical incision has been closed with a cosmetic suture under the skin that will dissolve in about 6 weeks. In 14 days, you can use a pair of clean scissors and cut the suture that is left outside of the skin at the ends of your incision. 1. The small skin tapes can be removed 7 days after surgery if they have not fallen off by that point. 2. You may keep the wound open to air as much as possible to promote healing after post-op day number 5 unless told otherwise by your doctor. 3. If you think the wound looks like it is becoming infected (redness or worsening drainage) and/or you are experiencing fever, chill or worsening back pain and muscle spasms, contact the office so that we may evaluate you as soon as possible. B. Complications are uncommon, but please contact us if you have any signs or symptoms of: 1. wound infection (fever higher than 102.5 degrees F, redness, separation of wound, drainage, or increasing pain from the incision) 2. blood clots in legs (pain, swelling, redness and warmth in legs) 3. urinary tract infection (fever higher than 102.5 degrees F, burning upon urination or increased frequency of urination) 4. nerve problems (inability to walk on your toes or heels, numbness, loss of bowel or bladder control) 5. any other symptoms that concern you C. Please call the office at if you have any concerns or questions about your operation or recovery. D. No smoking! Smoking drastically decreases the chance of a solid fusion. E. Do not take any anti-inflammatory medications (Indocin, Advil, Motrin, Aspir in, Naprosyn, etc.) as these may inhibit the chance of a solid fusion. Tylenol is okay to take for pain. MANAGING PAIN AFTER SPINAL SURGERY 1. Narcotic medication is intended for short-term use and will be provided for surgical pain. Surgical pain usually lasts for a period of 4-6 weeks. Narcotic medication includes Percocet, Vicodin, Darvocet, Tylenol #3 or Lortab. 2. Longer-term pain is more appropriately treated with non-narcotic medication such as Tylenol ES. 3. Muscle spasm is not appropriately treated with narcotics. Muscle relaxers such as Soma, Flexeril or Skelaxin can be used along with Tylenol ES. 4. Remember that we all live with some "aches and pains". This is not unusual or uncommon after an injury or as we get older. a. Back pain is expected and may include muscle spasms for 4 to 6 weeks after surgery. The pain should gradually improve. If the pain worsens for no apparent reason, please contact the office. b. Intermittent leg pain may also be experienced and should not be concerned about unless it worsens for no apparent reason. If so, please contact the office. 5. We will provide appropriate medication within the normal guidelines of their prescribed use. We will also be very cautious and aware of potential abuse and extended duration of patients' medication needs. a. Pain medications are for your comfort and to assist with sleep and rest so that the tissue can heal. They are not provided in order to return to normal activity and should not be used through the day. To do so or worsening pain at night can result from ongoing tissue damage and development of tolerance to the prescribed medicine. 6. Please allow 2-3 days to process refills. Prescriptions will not be mailed but must be picked up at the office. FOLLOW UP VISIT: Keep your scheduled follow-up appointment. Any questions, please call the office at . Pending Studies at Discharge: No Stand-Alone Forms: My [facility] Luminescent, Opioid Pain Management, Smoking Cessation Medications and DC Order Prescriptions: New tramadol 50 mg tablet 50 mg PO Q6H PRN (Reason: pain, moderate) Qty: 30 RF: 0 oxycodone 5 mg tablet 5 mg PO Q6H PRN (Reason: pain, severe) Qty: 30 RF: 0 lorazepam [Ativan] 1 mg tablet 1 mg PO DAILY PRN (Reason: anxiety) Qty: 10 RF: 0 Continued gabapentin 300 mg capsule 300 mg PO TID RF: 0 multivitamin Tablet 1 tab PO QAM RF: 0 oxycodone [OxyContin] 10 mg Tablet,Oral Only,Ext.Rel.12 Hr 10 mg PO Q6H PRN (Reason: Pain) RF: 0 docusate sodium [Colace] 100 mg Capsule 100 mg PO BID RF: 0 losartan 50 mg Tablet 50 mg PO QPM RF: 0 carvedilol [Coreg] 25 mg Tablet 25 mg PO BID RF: 0 doxycycline hyclate 100 mg Capsule 100 mg PO BID RF: 0 potassium chloride 10 mEq Tablet Extended Release 10 meq PO BID RF: 0 simvastatin [Zocor] 40 mg Tablet 40 mg PO HS RF: 0 amlodipine [Norvasc] 10 mg Tablet 10 mg PO QAM RF: 0 hydrochlorothiazide 25 mg Tablet 25 mg PO QAM RF: 0 Discontinued ibuprofen 200 mg Tablet 800 - 1,000 mg PO QID PRN (Reason: Pain) RF: 0 Discharge Orders: Discharge Order (Routine); Ordered 01/19/20 Ordered By: Gregorio Bear Admission Data Admit Date/Time: 01/16/20 18:03 Attending Provider: Gregorio Bear Admit Provider: Gregorio Bear Primary Care Provider: Shorty Cortes Other Providers: Wilfredo Neumann ; Lino Ahn ; Roman Johnson Other Interventions: Discharge Summary Assessment (RN) Last Done: 01/19/20 11:45
== END 2020-01-19 14:26 | disposition home or self-care (01) | DRG 455 ==
LOC: 3N 16:17 → ASU 16:17